=== PATIENT | male | born 1955 | race Caucasian/White ===

== ENCOUNTER 2019-04-24 08:49 | Outpatient (CLI) | payer BC ==
--- NOTE | 2019-04-24 09:16 | RAD ---
2 views lumbar spine: 04/24/2019 COMPARISON: None HISTORY: Left hip pain, low back pain, radiculopathy FINDINGS: There is a prominent degree of rotolevoscoliosis centered at the L2 level. The lateral exam ination demonstrates no significant anterolisthesis or retrolisthesis. There is prominent multilevel disc space narrowing throughout the lumbar spine. There is significant lateral osteophyte formation at multiple levels within the lumbar spine, most prominent at the L1-2 level, left greater than right, and at the L2-3 and L3-4 level on the right. No acute fracture or evidence of dislocation is apparent. IMPRESSION: Prominent multilevel lumbar spine degenerative change.
== END 2019-04-24 08:50 | disposition home or self-care (01) ==
LOC: SCSRAD 08:49
PROVIDERS: ATTEND Nurse Practitioner Family
DX: M54.5 Low back pain (principal); M47.816 Spondylosis without myelopathy or radiculopathy, lumbar region
CPT/HCPCS: 72100

== ENCOUNTER 2020-02-11 09:10 | Observation (INO) | payer BC ==
[~2020-02-11 09:10] MED LIST: Iopamidol-370 76% 500 ML 1 ML ONE
[2020-02-11] MEDS ORDERED: Dexamethasone 10 MG/ML VIAL ONE (09:36)
[2020-02-11 09:52] LABS: #Eosinphils 0.1 thou/uL (0.0-0.7); #Lymphocytes 1.1 thou/uL (1.20-3.40); #Monocytes 0.5 thou/uL (0.11-0.59); #Neutrophils 6.1 thou/uL (1.40-6.50); %Basophils 0.3 % (0.0-1.0); %Eosinophils 0.8 % (0.0-10.0); %Lymphocytes 13.9 % (21.0-51.0); %Monocytes 6.6 % (0.0-10.0); %Neutrophils 78.5 % (42.0-75.0); Mean Corpuscular HGB CONC 34.4 g/dL (32.0-36.0); Mean Corpuscular Volume 93.1 fL (78.0-98.0); Mean Platelet Volume 6.2 fL (7.4-10.4); Platelet Count 298 thou/uL (130-400); RBC Distribution Width 14.1 % (11.5-14.5); Red Blood Cell (RBC) Count 4.36 mill/uL (4.70-6.10); White Blood Cell (WBC) Count 7.7 thou/uL (4.8-10.8)
--- NOTE | 2020-02-11 10:05 | RAD ---
PORTABLE CHEST: HISTORY: COVID positive, cough and shortness of breath. FINDINGS: Heart size and mediastinum are within normal limits. Bilateral lung infiltrates are seen. Changes a re more pronounced in the right lung. IMPRESSION: Bilateral lung infiltrates consistent with COVID pneumonia. POS: STEPHANIE
[2020-02-11 10:18] LABS: ALT (SGPT) 48 U/L (8-55); AST (SGOT) 29 U/L (5-34); Albumin 3.2 g/dL (3.4-4.8); Alkaline Phosphatase 70 U/L (40-110); Anion Gap 18 mmol/L (10-20); BUN (Urea Nitrogen) 16 mg/dL (8.4-25.7); Bilirubin, Total 0.7 mg/dL (0.2-1.2); Calc. Creatinine Clearance 0 mL/min (70-130); Calcium 8.4 mg/dL (7.8-10.44); Carbon Dioxide 21 mmol/L (23-31); Chloride 106 mmol/L (98-107); Globulin 3.3 g/dL (2.4-3.5); Glucose 105 mg/dL (80-115); Potassium 3.9 mmol/L (3.5-5.1); Protein, Total 6.5 g/dL (5.8-8.1); Sodium 141 mmol/L (136-145)
[2020-02-11] MEDS ORDERED: Cefepime 2 GM VIAL ONE (10:55)
[2020-02-11] MEDS ORDERED: Azithromycin 500 MG VIAL ONE (10:55)
[2020-02-11 13:01] LABS: Lactic Acid 2.4 mmol/L (0.5-2.2)
[2020-02-11] MEDS ORDERED: Aspirin Chewable 81 MG TAB ONE (13:28)
[2020-02-11] MEDS ORDERED: Acetaminophen 325 MG TAB PO PRN (13:29)
[2020-02-11] MEDS ORDERED: Acetaminophen 650 MG Suppository PR PRN (13:29)
[2020-02-11] MEDS ORDERED: Enoxaparin Sodium 40 MG/0.4 ML SYRINGE SC SCH (13:30)
[2020-02-11] MEDS ORDERED: Benzonatate 100 MG CAP PO PRN (13:40)
--- NOTE | 2020-02-11 13:44 | PDOC.HHP ---
Hospitalist HPI - History of Present Illness History of Present Illness: ADMISSION DATE: 02/11/2020 TIME OF ASSESSMENT: 1300 PRIMARY CARE PHYSICIAN: Dr. Kitty Valentine CHIEF COMPLAINT: Shortness of breath HPI: This is a 64-year-old gentleman who presents to the emergency department with increasing shortness of breath for the days. Patient states he first started to feel unwell on , 02/01/2020 with chills a cough and then later that week and developed mild shortness of breath. This prompted him to be tested for Covid on 02/04/2020 and was found to be positive. Patient states his symptoms have persisted and his shortness of breath has gradually worsened since then. Complains of a cough and on occasion has coughing fits that causes difficulty catching his breath and during those episodes is able to cough up green sputum. Denies any hemoptysis. States his shortness of breath has continued to worsen and yesterday evening he used his [id number]'s supplemental home oxygen to help him rest better at night which did work. This morning he was at as well and prompted by his sister to come in for further evaluation. Does not require oxygen at baseline and does not have any history of asthma, COPD or other lung disease. Arriving to the emergency department the patient is feeling better and is currently without any complaints. ROS: He denies having any chest pain or palpitations. No lightheadedness or dizziness. Denies any nausea or vomiting. No abdominal pain or cramping and denies any changes with her stools. Denies any urinary symptoms. All other review of systems are negative ED COURSE: In the emergency department he had an EKG done which showed a normal sinus rhythm with a heart rate of 88. No ST changes or T wave abnormalities present. Labs showed a white count of 7.7, hemoglobin 14, hematocrit 40.6, platelets 298, neutrophils 75%. Sodium 141, potassium 3.9, BUN 16, creatinine 1.03, GFR 73, LFTs normal. Troponin 0 0.022. Lactic acid 2.4. Chest x-ray showed bilateral lung infiltrates consistent with Covid pneumonia. Patient was given 324 mg of aspirin. He was started on IV antibiotics with azithromycin and cefepime. Also given 6 mg of p.o. dexamethasone. He received 1 L of normal saline. PAST MEDICAL HISTORY: 1. Hypertension 2. Hyperlipidemia 3. Obesity 4. CAD PAST SURGICAL HISTORY: 1. History of coronary artery stents, placed by Dr. Simon 2. Neck surgery SOCIAL HISTORY: She denies any tobacco use alcohol consumption or drug use. He is fully independent at baseline. FAMILY HISTORY: Noncontributory ALLERGIES: Isosorbide CURRENT MEDICATIONS: 1. Atorvastatin 40 mg p.o. at bedtime 2. Gabapentin 600 mg p.o. at bedtime 3. Lisinopril 10 mg p.o. daily Surrogate decision maker is his Padma Curtis - Exam General Appearance: NAD, awake alert General - other findings: VS: Temp 97.9, HR 78, BP 112/71, RR 20, O2 sat 96% on room air. Eye: PERRL, anicteric sclera ENT: normocephalic atraumatic, no oropharyngeal lesions Neck: supple, no lymphadenopathy Heart: RRR, normal peripheral pulses Respiratory: CTAB, no wheezes, no rales, no ronchi Respiratory - other findings: deep inspiration triggers coughing Gastrointestinal: soft (obese), non-tender, non-distended, no guarding, no ri gidity Extremities: no cyanosis, no edema Skin: tenting Neurological: cranial nerve grossly intact, normal sensation to touch, no weakness, no focal deficits Musculoskeletal: normal tone, normal strength, no muscle wasting Psychiatric: normal affect, normal behavior, A&O x 3 Hospitalist Results - Labs Result Diagrams: 02/11/20 09:41 02/11/20 09:41 Lab results: WBC 7.7 thou/uL (4.8-10.8) 02/11/20 09:41 Hgb 14.0 g/dL (14.0-18.0) 02/11/20 09:41 Hct 40.6 % (42.0-52.0) L 02/11/20 09:41 MCV 93.1 fL (78.0-98.0) 02/11/20 09:41 Plt Count 298 thou/uL (130-400) 02/11/20 09:41 Neutrophils % 78.5 % (42.0-75.0) H 02/11/20 09:41 Sodium 141 mmol/L (136-145) 02/11/20 09:41 Potassium 3.9 mmol/L (3.5-5.1) 02/11/20 09:41 Chloride 106 mmol/L (98-107) 02/11/20 09:41 Carbon Dioxide 21 mmol/L (23-31) L 02/11/20 09:41 BUN 16 mg/dL (8.4-25.7) 02/11/20 09:41 Creatinine 1.03 mg/dL (0.7-1.3) 02/11/20 09:41 Glucose 105 mg/dL (80-115) 02/11/20 09:41 Lactic Acid 2.4 mmol/L (0.5-2.2) H 02/11/20 12:33 Calcium 8.4 mg/dL (7.8-10.44) 02/11/20 09:41 Total Bilirubin 0.7 mg/dL (0.2-1.2) 02/11/20 09:41 AST 29 U/L (5-34) 02/11/20 09:41 ALT 48 U/L (8-55) 02/11/20 09:41 Alkaline Phosphatase 70 U/L (40-110) 02/11/20 09:41 Troponin I 0.022 ng/mL (< 0.028) 02/11/20 09:41 Serum Total Protein 6.5 g/dL (5.8-8.1) 02/11/20 09:41 Albumin 3.2 g/dL (3.4-4.8) L 02/11/20 09:41 - Radiology Interpretation Chest x-ray Status: report reviewed by md Hospitalist H&P A/P - Problem (1) Pneumonia due to COVID-19 virus Code(s): U07.1 - COVID-19; J12.89 - OTHER VIRAL PNEUMONIA Status: Acute (2) Shortness of breath Code(s): R06.02 - SHORTNESS OF BREATH Status: Acute (3) Essential hypertension Code(s): I10 - ESSENTIAL (PRIMARY) HYPERTENSION Status: Acute (4) Hyperlipidemia Code(s): E78.5 - HYPERLIPIDEMIA, UNSPECIFIED Status: Acute (5) V-tach Code(s): I47.2 - VENTRICULAR TACHYCARDIA Status: Acute (6) CAD (coronary artery disease) Code(s): I25.10 - ATHSCL HEART DISEASE OF [place] CORONARY ARTERY W/O ANG PCTRS Status: Chronic - Plan Plan: Shortness of breath secondary to COVID pneumonia: Has been symptomatic >1 week. Monitor O2 sats Obtain walking sats Continue IV antibiotics and decadron 6 mg IV daily Albuterol inhalers and supplemental O2 by NC Check LDH, Lactic acid, Ferritin, CRP and D-Dimer If d-dimer elevated obtain CTA to rule out PE If negative, obtain nonconstrast CT chest to better assess lungs Unable to have Echo due to covid status. Isolation precautions Lactic acidosis: Continue IV fluids and repeat Runs of non-sustained Vtach in ED Cardiac monitoring Continue to trend troponins Check electrolytes Cardiology consult placed per discussion with Dr. Sanchez (he sees Dr. Simon who is on) Essential hypertension: Patient states his BP runs in 110s to 120s at home. Currently low 100s. Hold antihypertensives for now Resume if BP starts to rise Hyperlipidemia Resume statin CAD As above, resume statin. Cardiology meds to ne verirfied, restart as appropriate GI Prophylaxis with Famotidine 20 mg IV BID DVT Prophylaxis with Lovenox 40 mg SC daily CODE STATUS FULL ADDENDUM: Case discussed with Dr. Sanchez who agrees with plan as above. Has advised to give Plasma. No benefit to Remdesivir as patient is >1 week from start of symptoms. Monitor strips reviewed by Dr. Simon and patient felt to have artifact rather than vtach.
[2020-02-11] MEDS ORDERED: Dexamethasone 4 mg/ml Vial SLOW IVP SCH (13:45)
[2020-02-11] MEDS ORDERED: Albuterol 200 PUFF (6.7GM INHALER) INH PRN (14:11)
[2020-02-11] MEDS ORDERED: Magnesium 2 GM/50 ML BAG (IN WATER) ONE (14:28)
[2020-02-11 15:00] LABS: Troponin I 0.021 ng/mL (< 0.028)
[2020-02-11] MEDS: Sodium Chloride 0.9% 1,000 ML IV SCH (15:57)
--- NOTE | 2020-02-11 17:05 | CT ---
CT ANGIOGRAM THORAX WITH IV CONTRAST AND 3-D RECONSTRUCTIONS CLINICAL INDICATION: Increasing shortness of breath for one week. Elevated d-dimer. Worsening cough. Covid positive. COMPARISON: None FINDINGS: Pulmonary arteries: No filling defects are seen in the pulmonary arteries to suggest a pulmonary embo shikha. Aorta: The aorta is normal in caliber without evidence of an aortic dissection. Lungs: There are scattered groundglass opacities seen throughout the lungs bilaterally greater in the upper lobes most compatible with Covid pneumonia. No pleural effusion is present. This exam is obtained in expiratory phase of imaging. Large airways otherwise appear patent. Mediastinum: Vascular calcifications are seen in the coronary arteries. No enlarged lymph nodes are s een by CT size criteria. Thyroid gland: Grossly within normal limits. Osseous structures: Degenerative changes are seen in the spine. Chest wall: Ventriculoperitoneal shunt catheter is seen in the midline anterior chest entering the ep igastric region anteriorly. There is evidence of a fat-containing hernia at entry site of the ventriculoperitoneal shunt catheter into the abdomen. Upper abdomen: Within normal limits for phase of imaging. IMPRESSION: 1. Covid pneumonia. 2. No CT evidence of a pulmonary embolus. 3. Coronary artery calcifications.
[2020-02-11] MEDS: Famotidine/PF 20 mg/2ml Vial SLOW IVP SCH (21:06)
[2020-02-11] MEDS: Cefepime 2 GM in Sodium Chloride 0.9% 100 ML IVPB SCH (22:12)
[2020-02-12] MEDS: Sodium Chloride 0.9% 1,000 ML IV SCH (03:21)
[2020-02-12 04:57] LABS: #Eosinphils 0.1 thou/uL (0.0-0.7); #Lymphocytes 0.9 thou/uL (1.20-3.40); #Monocytes 0.7 thou/uL (0.11-0.59); #Neutrophils 6.4 thou/uL (1.40-6.50); %Basophils 0.3 % (0.0-1.0); %Lymphocytes 11.3 % (21.0-51.0); %Monocytes 8.7 % (0.0-10.0); %Neutrophils 78.7 % (42.0-75.0); Hemoglobin 12.1 g/dL (14.0-18.0); Mean Corpuscular HGB CONC 32.7 g/dL (32.0-36.0); Mean Corpuscular Hemoglobin 30.6 pg (27.0-31.0); Mean Corpuscular Volume 93.6 fL (78.0-98.0); Platelet Count 313 thou/uL (130-400); RBC Distribution Width 14.1 % (11.5-14.5); Red Blood Cell (RBC) Count 3.95 mill/uL (4.70-6.10); White Blood Cell (WBC) Count 8.1 thou/uL (4.8-10.8)
[2020-02-12 05:17] LABS: Lactic Acid 1.1 mmol/L (0.5-2.2)
[2020-02-12 05:21] LABS: ALT (SGPT) 36 U/L (8-55); AST (SGOT) 13 U/L (5-34); Alkaline Phosphatase 61 U/L (40-110); Anion Gap 11 mmol/L (10-20); BUN (Urea Nitrogen) 22 mg/dL (8.4-25.7); Bilirubin, Total 0.6 mg/dL (0.2-1.2); Calc. Creatinine Clearance 128 mL/min (70-130); Calcium 7.9 mg/dL (7.8-10.44); Carbon Dioxide 24 mmol/L (23-31); Chloride 108 mmol/L (98-107); Globulin 2.5 g/dL (2.4-3.5); Glucose 93 mg/dL (80-115); Potassium 4.1 mmol/L (3.5-5.1); Protein, Total 5.5 g/dL (5.8-8.1); Sodium 139 mmol/L (136-145)
[2020-02-12] MEDS: Famotidine/PF 20 mg/2ml Vial SLOW IVP SCH (07:47)
[2020-02-12] MEDS ORDERED: Ascorbic Acid 500 mg Chewable Tablet PO SCH (09:00)
[2020-02-12] MEDS ORDERED: Enoxaparin Sodium 40 MG/0.4 ML SYRINGE SC SCH (09:00)
[2020-02-12] MEDS ORDERED: Dexamethasone 4 mg/ml Vial SLOW IVP SCH (09:00)
[2020-02-12] MEDS ORDERED: Zinc Sulfate 220 MG CAP PO SCH (09:00)
--- NOTE | 2020-02-12 10:43 | PDOC.DS.DS ---
Provider - Provider Date of Admission: 02/11/20 12:40 Date of Discharge: 02/12/20 Admitting Provider: Debra Sanchez MD Primary Care Physician: Kitty Valentine MD Course - Hospital Course Hospital Course: Discharge diagnosis: 1. COVID-19 pneumonia 2. Lactic acidosis Hospital course: Patient is a pleasant 64-year-old gentleman who was admitted to the hospital on observation status on February 11, 2020 for COVID-19 pneumonia and suspected v entricular tachycardia and electrocardiogram. The rhythm strip was reviewed by cardiology service and they felt that it was an artifact. Patient also had mild lactic acidosis at the time of admission, which resolved. He did not qualify for remdesivir or steroids. He was not hypoxic. He was offered convalescent plasma, which he initially refused but at the time of this dictation he is willing to receive. He will be discharged home after administration of convalescent plasma. He also received intravenous antibiotics while in the hospital to cover for the possibility of secondary bacterial infection and is being discharged home on oral antibiotics. Is also been advised to take zinc and vitamin C. Many thanks for allowing me to participate in your patient's care. Please feel free to contact me with any questions or concerns. Discharge destination: Home Resuscitation Status: 02/11/20 13:29 Resuscitation Status Routine Co-Sign Provider: Resuscitation Status: FULL: Full Resuscitation - Labs Lab Results: 02/12/20 04:46 02/12/20 04:46 Abnormal Lab Results - Last 48 hrs 02/11/20 09:40: Lactate Dehydrogenase 511 H 02/11/20 09:40: D-Dimer 0.77 H 02/11/20 09:40: C-Reactive Protein 1.08 H 02/11/20 09:40: Ferritin 470.66 H 02/11/20 09:41: Lactic Acid 2.4 H 02/11/20 09:41: Carbon Dioxide 21 L, Albumin 3.2 L, Albumin/Globulin Ratio 1.0 L 02/11/20 09:41: RBC 4.36 L, Hct 40.6 L, MCH 32.0 H, MPV 6.2 L, Neutrophils % 78.5 H, Lymphocytes % 13.9 L, Lymphocytes # 1.1 L 02/11/20 12:33: Lactic Acid 2.4 H 02/12/20 04:46: Chloride 108 H, Serum Total Protein 5.5 L, Albumin 3.0 L 02/12/20 04:46: RBC 3.95 L, Hgb 12.1 L, Hct 36.9 L, MPV 6.0 L, Neutrophils % 78.7 H, Lymphocytes % 11.3 L, Lymphocytes # 0.9 L, Monocytes # 0.7 H - Physical Exam Vitals: Vital Signs (12 hours) Temp Pulse Resp BP Pulse Ox 02/12/20 08:08 98.7 F 90 20 129/58 L 94 L 02/12/20 05:01 98.3 F 58 L 17 146/74 H 94 L 02/11/20 23:55 97.6 F 64 17 135/73 94 L Weight Weight 260 lb Physical Exam: The patient was seen and examined on the day of discharge. Patient denies chest pain or shortness of breath. Vital signs are stable. S1 and S2 are heard. Lungs are clear to auscultation bilaterally. Plan - Discharge Medications Prescriptions: Cefdinir [Omnicef] 300 mg PO BID #18 cap Ascorbic Acid [Vitamin C] 1,000 mg PO DAILY #30 tablet Zinc Sulfate [Zinc-220] 220 mg PO DAILY #10 capsule Home Medications: Medication Instructions Recorded Confirmed Type Gabapentin 1 tab PO BID 04/21/16 02/11/20 History Lisinopril 1 tab PO HS 04/21/16 02/11/20 History Albuterol Sulfate [Albuterol 8.5 gm IH Q4H PRN 02/11/20 02/11/20 History Sulfate Hfa] Aspirin [Ecotrin Low Strength] 81 mg PO DAILY 02/11/20 02/11/20 History Atorvastatin Calcium [Lipitor] 20 mg PO DAILY 02/11/20 02/11/20 History Furosemide [Lasix] 20 mg PO DAILY PRN 02/11/20 02/11/20 History Ascorbic Acid [Vitamin C] 1,000 mg PO DAILY #30 tablet 02/12/20 Rx Cefdinir [Omnicef] 300 mg PO BID #18 cap 02/12/20 Rx Zinc Sulfate [Zinc-220] 220 mg PO DAILY #10 capsule 02/12/20 Rx Allergies: isosorbide Allergy (Intermediate, Verified 02/11/20 15:31) Rash per pt - Discharge Instructions Discharge Instructions:: Monitor pulse oximeter readings and seek medical attention for oxygen saturation less than 90%. Activity:: Activity as Tolerated Nourishment:: Heart Healthy Diet - Follow up Plan Referrals: Kitty Valentine MD [Primary Care Provider] - 3 Days Disposition: HOME Quality - Care Measures CORE MEASURES:: N/A
[2020-02-12] MEDS ORDERED: Azithromycin 500 MG in Sodium Chloride 0.9% 250 ML 250 ML IVPB SCH (11:00)
[2020-02-12] MEDS: Cefepime 2 GM in Sodium Chloride 0.9% 100 ML IVPB SCH (12:40)
[2020-02-12 17:16] VITALS: BP 136/77; TEMP 98.6
== END 2020-02-12 17:45 | disposition home or self-care (01) ==
LOC: ERS 09:10 → ERHOLD 12:40 → 2SW 14:58
PROVIDERS: ADMIT Internal Medicine; ATTEND Internal Medicine
DX: U07.1 COVID-19 (principal); J12.89 Other viral pneumonia; E87.2 Acidosis; I10 Essential (primary) hypertension; E78.5 Hyperlipidemia, unspecified; I47.2 Ventricular tachycardia; I25.10 Atherosclerotic heart disease of native coronary artery without angina pectoris; E66.9 Obesity, unspecified; Z79.82 Long term (current) use of aspirin; Z79.899 Other long term (current) drug therapy; Z88.8 Allergy status to other drugs, medicaments and biological substances; Z95.5 Presence of coronary angioplasty implant and graft
CPT/HCPCS: 36415; 36430; 71045; 71275; 80053; 82728; 83605; 83615; 83735; 84484; 85025; 85379; 86140; 86850; 86900; 86901; 93005; 94760; 96365; 96367; 96372; 96375; 96376; G0378; J0456; J0692; J1100; J1650; J3475; J3490; J7050; P9017; Q9967; S0028

== ENCOUNTER 2020-04-25 08:34 | Outpatient (CLI) | payer BC, MEDICARE ==
[2020-04-25 09:39] LABS: Hemoglobin 13.9 g/dL (13.5-17.5); Mean Corpuscular HGB CONC 31.5 g/dL (32.0-36.0); Mean Corpuscular Hemoglobin 29.8 pg (27.0-33.0); Mean Corpuscular Volume 94.6 fl (81.2-95.1); Mean Platelet Volume 9.2 fl (7.4-10.4); Platelet Count 191 10x3/uL (150-450); Red Blood Cell (RBC) Count 4.66 10x6/uL (4.32-5.72); White Blood Cell (WBC) Count 7.1 10x3/uL (3.5-10.5)
[2020-04-25 10:01] LABS: PTT 24.8 sec (22.0-33.0); Prothrombin Time 10.3 sec (9.5-12.1)
[2020-04-25 10:20] LABS: Anion Gap 14 mmol/L (10-20); BUN (Urea Nitrogen) 18 mg/dL (8.4-25.7); Calc. Creatinine Clearance 0 mL/min (70-130); Calcium 8.9 mg/dL (7.8-10.44); Carbon Dioxide 27 mmol/L (23-31); Chloride 106 mmol/L (98-107); Glucose 105 mg/dL (80-115); Potassium 4.7 mmol/L (3.5-5.1); Sodium 142 mmol/L (136-145)
== END 2020-04-25 08:35 | disposition home or self-care (01) ==
LOC: LABBT 08:34
PROVIDERS: ATTEND Surgery
DX: Z01.818 Encounter for other preprocedural examination (principal); M51.16 Intervertebral disc disorders with radiculopathy, lumbar region; M48.061 Spinal stenosis, lumbar region without neurogenic claudication; Z20.822 Contact with and (suspected) exposure to COVID-19
CPT/HCPCS: 80048; 85027; 85610; 85730; 93005; 93010

== ENCOUNTER 2020-04-30 05:45 | Observation (INO) | payer BC, MEDICARE ==
[2020-04-30] MEDS ORDERED: Thrombin 5000 UNITS/5 ML VIAL ONE (06:24)
[2020-04-30] MEDS ORDERED: Fentanyl 250 MCG/5 ML VIAL ONE (06:45)
[2020-04-30] MEDS ORDERED: Midazolam HCl 2 mg/2 ml Vial ONE (07:16)
[2020-04-30] MEDS ORDERED: Phenylephrine 10 MG/ML VIAL ONE (09:00)
[2020-04-30] MEDS ORDERED: PHENYLEPHRINE-NS 100 MCG/ML 10 ML SYRINGE ONE (09:38)
[2020-04-30] MEDS ORDERED: Metoclopramide HCl 10 MG/2 ML VIAL ONE (09:38)
[2020-04-30] MEDS ORDERED: Ondansetron PF 4 MG/2 ML Vial ONE (09:38)
[2020-04-30] MEDS ORDERED: PROPOFOL 200 MG/20 ML VIAL ONE (09:38)
[2020-04-30] MEDS ORDERED: ePHEDrine 50 MG/ML VIAL ONE (09:38)
[2020-04-30] MEDS ORDERED: Dexamethasone 20 MG/5 ML VIAL ONE (09:38)
[2020-04-30] MEDS ORDERED: Lidocaine 1% PF 5 ML VIAL ONE (09:38)
[2020-04-30] MEDS ORDERED: Glycopyrrolate 0.2 MG/ML 5 ML SYRINGE ONE (09:38)
[2020-04-30] MEDS ORDERED: Rocuronium Bromide 10 MG/ML (10ML VIAL) ONE (09:38)
[2020-04-30] MEDS ORDERED: Morphine Sulfate 2 MG/ML SYRINGE SLOW IVP PRN (10:12)
[2020-04-30] MEDS ORDERED: Promethazine HCl 25 MG/ML VIAL IM PRN (10:12)
[2020-04-30] MEDS ORDERED: Ondansetron HCl/PF 4 MG/2 ML Vial IVP PRN (10:12)
[2020-04-30] MEDS ORDERED: HYDROmorphone 2 MG/ML VIAL SLOW IVP PRN (10:12)
[2020-04-30] MEDS ORDERED: Promethazine HCl 25 MG/ML VIAL SLOW IVP PRN (10:12)
[2020-04-30] MEDS ORDERED: PACU-Morphine 4MG/ML VIAL SLOW IVP PRN (10:12)
[2020-04-30] MEDS ORDERED: HYDROmorphone 2 MG/ML VIAL ONE (10:49)
[2020-04-30] MEDS ORDERED: Acetaminophen 325 MG TAB PO PRN (11:23)
[2020-04-30] MEDS ORDERED: traMADol HCl 50 MG TAB PO PRN (11:23)
[2020-04-30] MEDS ORDERED: Bisacodyl 10 MG SUPP PR PRN (11:23)
[2020-04-30] MEDS ORDERED: Morphine 2 MG/ML VIAL SLOW IVP PRN (11:23)
[2020-04-30] MEDS ORDERED: Mag-Al 1200 mg/1200 mg/30 ML UDCUP PO PRN (11:23)
[2020-04-30] MEDS ORDERED: Acetaminophen/Codeine 30-300mg Tablet PO PRN (11:23)
[2020-04-30] MEDS ORDERED: Milk Of Magnesia 30 ML UDCUP PO PRN (11:23)
[2020-04-30] MEDS ORDERED: Furosemide 20 MG TAB PO PRN (11:26)
[2020-04-30] MEDS ORDERED: hydrALAZINE 20 MG/ML VIAL SLOW IVP PRN (11:26)
[2020-04-30] MEDS ORDERED: Fentanyl 100 MCG/2 ML VIAL ONE ×3 (11:45→12:56)
[2020-04-30] MEDS: Sodium Chloride 0.9% 1,000 ML IV SCH (15:22)
[2020-04-30] MEDS: CEFAZOLIN 2 GM in Premix Bag 1 BAG IVPB SCH ×2 (16:30→23:33)
[2020-04-30] MEDS: HYDROcodone/Acetaminophen 7.5/325 mg Tablet PO PRN ×2 (20:01→23:32)
[2020-04-30] MEDS: Lisinopril 5 MG TAB PO SCH (20:02)
[2020-04-30] MEDS: Gabapentin 300 MG CAP PO SCH (20:02)
[2020-04-30] MEDS: tiZANidine HCl 4 MG TAB PO PRN (20:03)
[2020-05-01] MEDS: Sodium Chloride 0.9% 1,000 ML IV SCH ×2 (03:13→14:58)
[2020-05-01] MEDS: HYDROcodone/Acetaminophen 7.5/325 mg Tablet PO PRN ×3 (04:11→14:58)
[2020-05-01] MEDS: tiZANidine HCl 4 MG TAB PO PRN ×2 (04:11→16:05)
[2020-05-01 05:57] LABS: #Lymphocytes 1.2 thou/uL (1.20-3.40); #Monocytes 1.4 thou/uL (0.11-0.59); #Neutrophils 10.2 thou/uL (1.40-6.50); %Eosinophils 0.3 % (0.0-10.0); %Neutrophils 79.7 % (42.0-75.0); Hemoglobin 11.1 g/dL (14.0-18.0); Mean Corpuscular HGB CONC 32.7 g/dL (32.0-36.0); Mean Corpuscular Hemoglobin 30.9 pg (27.0-31.0); Mean Corpuscular Volume 94.3 fL (78.0-98.0); Mean Platelet Volume 6.8 fL (7.4-10.4); Platelet Count 183 thou/uL (130-400); RBC Distribution Width 14.8 % (11.5-14.5); Red Blood Cell (RBC) Count 3.61 mill/uL (4.70-6.10); White Blood Cell (WBC) Count 12.8 thou/uL (4.8-10.8)
[2020-05-01 06:18] LABS: Anion Gap 14 mmol/L (10-20); BUN (Urea Nitrogen) 15 mg/dL (8.4-25.7); Calc. Creatinine Clearance 132 mL/min (70-130); Calcium 7.9 mg/dL (7.8-10.44); Carbon Dioxide 23 mmol/L (23-31); Chloride 106 mmol/L (98-107); Glucose 122 mg/dL (80-115); Potassium 4.2 mmol/L (3.5-5.1); Sodium 139 mmol/L (136-145)
[2020-05-01] MEDS: Gabapentin 300 MG CAP PO SCH ×2 (08:15→20:44)
[2020-05-01] MEDS: Atorvastatin Calcium 20 MG TAB PO SCH (20:44)
[2020-05-01] MEDS: Lisinopril 5 MG TAB PO SCH (20:47)
[2020-05-02] MEDS: tiZANidine HCl 4 MG TAB PO PRN ×3 (00:08→19:04)
[2020-05-02] MEDS: HYDROcodone/Acetaminophen 7.5/325 mg Tablet PO PRN ×3 (00:09→20:44)
[2020-05-02] MEDS: Sodium Chloride 0.9% 1,000 ML IV SCH ×2 (04:38→17:02)
[2020-05-02] MEDS: Gabapentin 300 MG CAP PO SCH ×2 (07:47→20:42)
[2020-05-02] MEDS: Atorvastatin Calcium 20 MG TAB PO SCH (20:41)
[2020-05-02] MEDS: Lisinopril 5 MG TAB PO SCH (20:41)
[2020-05-03] MEDS: tiZANidine HCl 4 MG TAB PO PRN (05:16)
[2020-05-03] MEDS: Sodium Chloride 0.9% 1,000 ML IV SCH (06:08)
[2020-05-03] MEDS ORDERED: Sodium Chloride 0.9% 1,000 ML IV SCH (09:00)
[2020-05-03] MEDS: Gabapentin 300 MG CAP PO SCH (10:14)
[2020-05-03] MEDS: HYDROcodone/Acetaminophen 7.5/325 mg Tablet PO PRN ×2 (13:19→17:30)
[2020-05-03 16:51] VITALS: BP 120/69; TEMP 98.2
[2020-05-03 18:02] VITALS: BMI 38.4
== END 2020-05-03 17:41 | disposition home or self-care (01) ==
LOC: SDC 05:45 → T4-A 11:23 → SDC 05-03 09:39
PROVIDERS: ADMIT Surgery; ATTEND Surgery
PROC: 01NB0ZZ Release Lumbar Nerve, Open Approach (ICD-10-PCS; principal; 2020-04-30)
DX: M48.061 Spinal stenosis, lumbar region without neurogenic claudication (principal); M54.16 Radiculopathy, lumbar region; Z79.82 Long term (current) use of aspirin; Z79.899 Other long term (current) drug therapy; Z88.8 Allergy status to other drugs, medicaments and biological substances
CPT/HCPCS: 36415; 76000; 80048; 85025; G0378; J0690; J1100; J1170; J2250; J2270; J2370; J2405; J2704; J2765; J3010; J3370; J3490

== ENCOUNTER 2020-10-16 08:23 | Outpatient (CLI) | payer MEDICARE | END 2020-10-16 08:24 | disposition home or self-care (01) | LOC: BICRAD 08:23 | PROVIDERS: ATTEND Physician Assistant | DX: M54.5 Low back pain (principal); M47.816 Spondylosis without myelopathy or radiculopathy, lumbar region; Z98.890 Other specified postprocedural states | CPT/HCPCS: 72100 ==

== ENCOUNTER 2021-02-21 06:59 | Inpatient (IN) | payer MEDICARE ==
[2021-02-21 08:18] LABS: #Eosinphils 0.2 thou/uL (0.0-0.7); #Lymphocytes 1.7 thou/uL (1.20-3.40); #Monocytes 0.8 thou/uL (0.11-0.59); #Neutrophils 3.8 thou/uL (1.40-6.50); %Basophils 0.5 % (0.0-1.0); %Eosinophils 3.1 % (0.0-10.0); %Lymphocytes 25.9 % (21.0-51.0); %Monocytes 11.5 % (0.0-10.0); Hemoglobin 11.5 g/dL (14.0-18.0); Mean Corpuscular Hemoglobin 31.2 pg (27.0-31.0); Platelet Count 233 thou/uL (130-400); RBC Distribution Width 16.4 % (11.5-14.5); Red Blood Cell (RBC) Count 3.69 mill/uL (4.70-6.10); White Blood Cell (WBC) Count 6.5 thou/uL (4.8-10.8)
[2021-02-21] MEDS ORDERED: Lorazepam 2 MG/ML VIAL ONE (08:34)
[2021-02-21] MEDS ORDERED: Aspirin Chewable 81 MG TAB ONE (08:35)
[2021-02-21] MEDS ORDERED: Aspirin 325 MG TAB ONE (08:35)
[2021-02-21] MEDS ORDERED: Furosemide 40 MG/4 ML VIAL ONE (08:35)
[2021-02-21] MEDS ORDERED: Nitroglycerin 2% Ointment 1 INCH/1 GM Packet ONE (08:35)
[2021-02-21 08:36] LABS: ALT (SGPT) 40 U/L (8-55); AST (SGOT) 22 U/L (5-34); Alkaline Phosphatase 90 U/L (40-110); Anion Gap 13 mmol/L (10-20); BUN (Urea Nitrogen) 10 mg/dL (8.4-25.7); Calc. Creatinine Clearance 0 mL/min (70-130); Calcium 8.8 mg/dL (7.8-10.44); Carbon Dioxide 24 mmol/L (23-31); Chloride 104 mmol/L (98-107); Globulin 2.5 g/dL (2.4-3.5); Glucose 105 mg/dL (80-115); Lipase 36 U/L (8-78); Magnesium 1.6 mg/dL (1.6-2.6); Potassium 3.8 mmol/L (3.5-5.1); Protein, Total 5.5 g/dL (5.8-8.1); Sodium 137 mmol/L (136-145)
[2021-02-21] MEDS ORDERED: Magnesium 2 GM/50 ML BAG (IN WATER) ONE (10:56)
[2021-02-21] MEDS ORDERED: Iopamidol-370 76% 500 ML 1 ML ONE (11:11)
[2021-02-21 11:31] LABS: Troponin I 0.013 ng/mL (< 0.028)
[2021-02-21 14:02] LABS: SARS-CoV-2 NAA Rapid Test Not Detected (NotDetected)
[2021-02-21 15:09] LABS: Troponin I 0.018 ng/mL (< 0.028)
[2021-02-21] MEDS ORDERED: Calcium Carbonate 500 MG ChewTAB PO PRN (17:07)
[2021-02-21] MEDS ORDERED: Electrolyte Replacement Protocol 1 EACH FS SCH (17:15)
[2021-02-21] MEDS ORDERED: Ondansetron PF 4 MG/2 ML Vial IVP PRN (18:12)
[2021-02-21] MEDS ORDERED: Potassium Chloride 20 MEQ TAB PO SCH (18:30)
[2021-02-21] MEDS ORDERED: Magnesium 2 GM/50 ML 2 GM in Premix Bag 1 BAG IVPB SCH (20:00)
[2021-02-21] MEDS: Furosemide 100 MG in Sodium Chloride 0.9% 90 ML IVPB SCH (20:26)
[2021-02-21] MEDS: Doxycycline 100 MG CAP PO SCH (20:37)
[2021-02-21] MEDS: Senokot S 8.6-50 MG TAB PO SCH (20:39)
[2021-02-21] MEDS: Heparin 5,000 UNITS/ML VIAL SC SCH (20:58)
[2021-02-21] MEDS ORDERED: Lorazepam 2 MG/ML VIAL SLOW IVP SCH (21:00)
[2021-02-21] MEDS: Albumin 25% 25 GM/100 ML BOT IVPB SCH (21:03)
[2021-02-21] MEDS: cefTRIAXone\\ROCEPHIN 2 GM in Sodium Chloride 0.9% 100 ML IVPB SCH (21:56)
[2021-02-22] MEDS: Albumin 25% 25 GM/100 ML BOT IVPB SCH ×4 (01:09→18:13)
[2021-02-22 04:48] LABS: #Basophils 0.1 thou/uL (0.0-0.2); #Eosinphils 0.2 thou/uL (0.0-0.7); #Lymphocytes 0.5 thou/uL (1.20-3.40); #Monocytes 0.7 thou/uL (0.11-0.59); #Neutrophils 4.5 thou/uL (1.40-6.50); %Basophils 1.8 % (0.0-1.0); %Eosinophils 3.1 % (0.0-10.0); %Monocytes 11.2 % (0.0-10.0); Hemoglobin 10.6 g/dL (14.0-18.0); Mean Corpuscular HGB CONC 33.7 g/dL (32.0-36.0); Mean Corpuscular Hemoglobin 29.8 pg (27.0-31.0); Mean Corpuscular Volume 88.7 fL (78.0-98.0); Mean Platelet Volume 6.2 fL (7.4-10.4); Platelet Count 232 thou/uL (130-400); RBC Distribution Width 16.3 % (11.5-14.5); Red Blood Cell (RBC) Count 3.54 mill/uL (4.70-6.10)
[2021-02-22 05:02] LABS: ALT (SGPT) 30 U/L (8-55); AST (SGOT) 19 U/L (5-34); Albumin 3.3 g/dL (3.4-4.8); Alkaline Phosphatase 74 U/L (40-110); Anion Gap 14 mmol/L (10-20); BUN (Urea Nitrogen) 8 mg/dL (8.4-25.7); Bilirubin, Total 1.2 mg/dL (0.2-1.2); Calc. Creatinine Clearance 97 mL/min (70-130); Calcium 8.3 mg/dL (7.8-10.44); Carbon Dioxide 24 mmol/L (23-31); Chloride 102 mmol/L (98-107); Globulin 2.2 g/dL (2.4-3.5); Glucose 103 mg/dL (80-115); Protein, Total 5.5 g/dL (5.8-8.1); Sodium 136 mmol/L (136-145)
[2021-02-22 05:07] LABS: Phosphorus 1.7 mg/dL (2.3-4.7)
[2021-02-22] MEDS ORDERED: Potassium Phosphate 15 MMOL in Sodium Chloride 0.9% 100 ML IVPB SCH (06:00)
[2021-02-22] MEDS ORDERED: PHOS-NAK 1 PKT PACK PO SCH (06:00)
[2021-02-22] MEDS ORDERED: Magnesium 2 GM/50 ML 2 GM in Premix Bag 1 BAG IVPB SCH (06:00)
[2021-02-22 07:56] VITALS: BMI 41.2
[2021-02-22] MEDS ORDERED: Potassium Chloride 20 MEQ TAB PO SCH ×2 (08:00→11:00)
[2021-02-22] MEDS ORDERED: Gabapentin 300 MG CAP PO SCH (09:00)
[2021-02-22 09:18] LABS: Actual Bicarbonate (HCO3a) 23.9 mEq/L (22-28); Base Excess (BEa) 0.6 mEq/L (-2.0 to +3.0); CO2 Tension 33.5 mmHg (35.0-45.0); Calcium, Ionized (arterial) 1.07 mmol/L (1.12-1.30); Carboxyhemoglobin (COHb) 0.5 gm% (0.0-3.0); Hemoglobin (Hb) 10.6 g/dL (14.0-18.0); O2 Tension (PaO2), arterial 67.7 mmHg (> 80.0); Potassium - ABG Lab 3.64 mmol/L (3.70-5.30); pH, Arterial 7.47 (7.35-7.45)
[2021-02-22 09:19] LABS: ALV-art Gradient 40.155 mmHg (0-20); Puncture Site RRA
[2021-02-22] MEDS: Aspirin 81 mg Enteric Coated Tablet PO SCH (09:51)
[2021-02-22] MEDS: Senokot S 8.6-50 MG TAB PO SCH ×2 (09:51→20:22)
[2021-02-22] MEDS: Acetaminophen 325 MG TAB PO PRN (09:51)
[2021-02-22] MEDS: Doxycycline 100 MG CAP PO SCH ×2 (09:51→20:22)
[2021-02-22] MEDS: Heparin 5,000 UNITS/ML VIAL SC SCH ×3 (09:52→20:46)
[2021-02-22] MEDS: Saccharomyces boulardii 250 MG CAP PO SCH (09:52)
[2021-02-22] MEDS: Atorvastatin Calcium 20 MG TAB PO SCH (20:21)
[2021-02-22] MEDS: cefTRIAXone\\ROCEPHIN 2 GM in Sodium Chloride 0.9% 100 ML IVPB SCH (20:23)
[2021-02-23] MEDS: Furosemide 100 MG in Sodium Chloride 0.9% 90 ML IVPB SCH (00:36)
[2021-02-23 05:07] LABS: #Eosinphils 0.2 thou/uL (0.0-0.7); #Monocytes 0.5 thou/uL (0.11-0.59); #Neutrophils 2.7 thou/uL (1.40-6.50); %Basophils 0.3 % (0.0-1.0); %Eosinophils 5.5 % (0.0-10.0); %Lymphocytes 21.9 % (21.0-51.0); %Neutrophils 61.3 % (42.0-75.0); Hemoglobin 9.7 g/dL (14.0-18.0); Mean Corpuscular HGB CONC 34.5 g/dL (32.0-36.0); Mean Corpuscular Hemoglobin 30.9 pg (27.0-31.0); Mean Corpuscular Volume 89.6 fL (78.0-98.0); Mean Platelet Volume 6.1 fL (7.4-10.4); Platelet Count 220 thou/uL (130-400); RBC Distribution Width 16.1 % (11.5-14.5); Red Blood Cell (RBC) Count 3.14 mill/uL (4.70-6.10); White Blood Cell (WBC) Count 4.3 thou/uL (4.8-10.8)
[2021-02-23 06:01] LABS: ALT (SGPT) 21 U/L (8-55); AST (SGOT) 15 U/L (5-34); Albumin 3.3 g/dL (3.4-4.8); Alkaline Phosphatase 61 U/L (40-110); Anion Gap 12 mmol/L (10-20); BUN (Urea Nitrogen) 6 mg/dL (8.4-25.7); Bilirubin, Total 1.2 mg/dL (0.2-1.2); Calc. Creatinine Clearance 111 mL/min (70-130); Calcium 8.4 mg/dL (7.8-10.44); Carbon Dioxide 26 mmol/L (23-31); Chloride 102 mmol/L (98-107); Globulin 1.9 g/dL (2.4-3.5); Glucose 103 mg/dL (80-115); Magnesium 2.1 mg/dL (1.6-2.6); Phosphorus 2.5 mg/dL (2.3-4.7); Potassium 3.5 mmol/L (3.5-5.1); Protein, Total 5.2 g/dL (5.8-8.1); Sodium 136 mmol/L (136-145)
[2021-02-23] MEDS ORDERED: Potassium Chloride 20 MEQ TAB PO SCH (06:45)
[2021-02-23] MEDS: Gabapentin 100 MG CAP PO SCH (09:54)
[2021-02-23] MEDS: Doxycycline 100 MG CAP PO SCH ×2 (09:54→20:34)
[2021-02-23] MEDS: Aspirin 81 mg Enteric Coated Tablet PO SCH (09:55)
[2021-02-23] MEDS: Saccharomyces boulardii 250 MG CAP PO SCH (09:55)
[2021-02-23] MEDS: Senokot S 8.6-50 MG TAB PO SCH ×2 (09:55→20:33)
[2021-02-23] MEDS: Heparin 5,000 UNITS/ML VIAL SC SCH ×3 (09:57→20:33)
[2021-02-23] MEDS: Budesonide 0.5 MG/2 ML NEB NEB SCH ×3 (10:23→19:25)
[2021-02-23] MEDS: cefTRIAXone\\ROCEPHIN 2 GM in Sodium Chloride 0.9% 100 ML IVPB SCH (20:33)
[2021-02-23] MEDS: Acetaminophen 325 MG TAB PO PRN (20:34)
[2021-02-23] MEDS: Atorvastatin Calcium 20 MG TAB PO SCH (20:34)
[2021-02-24] MEDS: Budesonide 0.5 MG/2 ML NEB NEB SCH ×2 (08:02→18:48)
[2021-02-24] MEDS: Heparin 5,000 UNITS/ML VIAL SC SCH ×3 (08:34→20:55)
[2021-02-24] MEDS: Aspirin 81 mg Enteric Coated Tablet PO SCH (08:39)
[2021-02-24] MEDS: Doxycycline 100 MG CAP PO SCH ×2 (08:39→20:55)
[2021-02-24] MEDS: Gabapentin 100 MG CAP PO SCH (08:40)
[2021-02-24] MEDS: Saccharomyces boulardii 250 MG CAP PO SCH (08:40)
[2021-02-24] MEDS: Senokot S 8.6-50 MG TAB PO SCH ×2 (09:59→20:55)
[2021-02-24 11:46] LABS: ALT (SGPT) 20 U/L (8-55); AST (SGOT) 20 U/L (5-34); Albumin 3.6 g/dL (3.4-4.8); Alkaline Phosphatase 74 U/L (40-110); Anion Gap 14 mmol/L (10-20); BUN (Urea Nitrogen) 7 mg/dL (8.4-25.7); Bilirubin, Total 0.9 mg/dL (0.2-1.2); Calc. Creatinine Clearance 80 mL/min (70-130); Calcium 9.2 mg/dL (7.8-10.44); Carbon Dioxide 26 mmol/L (23-31); Chloride 104 mmol/L (98-107); Globulin 2.3 g/dL (2.4-3.5); Glucose 125 mg/dL (80-115); Potassium 3.9 mmol/L (3.5-5.1); Protein, Total 5.9 g/dL (5.8-8.1); Sodium 140 mmol/L (136-145)
[2021-02-24] MEDS: cefTRIAXone\\ROCEPHIN 2 GM in Sodium Chloride 0.9% 100 ML IVPB SCH (18:17)
[2021-02-24] MEDS: Atorvastatin Calcium 20 MG TAB PO SCH (20:55)
[2021-02-25 05:06] LABS: #Eosinphils 0.4 thou/uL (0.0-0.7); #Monocytes 0.5 thou/uL (0.11-0.59); #Neutrophils 2.4 thou/uL (1.40-6.50); %Basophils 0.2 % (0.0-1.0); %Eosinophils 8.8 % (0.0-10.0); %Lymphocytes 23.6 % (21.0-51.0); %Monocytes 11.1 % (0.0-10.0); %Neutrophils 56.3 % (42.0-75.0); Hemoglobin 10.4 g/dL (14.0-18.0); Mean Corpuscular HGB CONC 32.9 g/dL (32.0-36.0); Mean Corpuscular Hemoglobin 30.1 pg (27.0-31.0); Mean Corpuscular Volume 91.5 fL (78.0-98.0); Mean Platelet Volume 6.3 fL (7.4-10.4); Platelet Count 281 thou/uL (130-400); RBC Distribution Width 16.1 % (11.5-14.5); Red Blood Cell (RBC) Count 3.44 mill/uL (4.70-6.10); White Blood Cell (WBC) Count 4.2 thou/uL (4.8-10.8)
[2021-02-25 05:28] LABS: Anion Gap 12 mmol/L (10-20); BUN (Urea Nitrogen) 8 mg/dL (8.4-25.7); Calc. Creatinine Clearance 114 mL/min (70-130); Calcium 8.8 mg/dL (7.8-10.44); Carbon Dioxide 27 mmol/L (23-31); Chloride 104 mmol/L (98-107); Glucose 104 mg/dL (80-115); Potassium 3.6 mmol/L (3.5-5.1); Sodium 139 mmol/L (136-145)
[2021-02-25] MEDS: Budesonide 0.5 MG/2 ML NEB NEB SCH (07:56)
[2021-02-25] MEDS: Heparin 5,000 UNITS/ML VIAL SC SCH (08:15)
[2021-02-25] MEDS: Furosemide 40 MG/4 ML VIAL SLOW IVP SCH ×2 (08:16→14:00)
[2021-02-25] MEDS: Senokot S 8.6-50 MG TAB PO SCH (08:16)
[2021-02-25] MEDS: Aspirin 81 mg Enteric Coated Tablet PO SCH (08:16)
[2021-02-25] MEDS: Gabapentin 100 MG CAP PO SCH (08:17)
[2021-02-25] MEDS: Saccharomyces boulardii 250 MG CAP PO SCH (08:18)
[2021-02-25] MEDS: Doxycycline 100 MG CAP PO SCH (08:19)
[2021-02-25 13:23] VITALS: BP 110/57; TEMP 98.2
== END 2021-02-25 15:15 | disposition home or self-care (01) | DRG 602 ==
LOC: ERS 06:59 → ERHOLD 10:47 → OBSVTOIN 14:50 → 2NO 18:10
PROVIDERS: ADMIT Internal Medicine; ATTEND Hospitalist
DX: L03.116 Cellulitis of left lower limb (principal); Z20.822 Contact with and (suspected) exposure to COVID-19; I50.33 Acute on chronic diastolic (congestive) heart failure; J96.90 Respiratory failure, unspecified, unspecified whether with hypoxia or hypercapnia; E66.2 Morbid (severe) obesity with alveolar hypoventilation; I13.0 Hypertensive heart and chronic kidney disease with heart failure and stage 1 through stage 4 chronic kidney disease, or unspecified chronic kidney disease; N17.9 Acute kidney failure, unspecified; I87.2 Venous insufficiency (chronic) (peripheral); L03.115 Cellulitis of right lower limb; F32.A Depression, unspecified; I25.10 Atherosclerotic heart disease of native coronary artery without angina pectoris; E78.5 Hyperlipidemia, unspecified; E87.6 Hypokalemia; E83.42 Hypomagnesemia; N18.2 Chronic kidney disease, stage 2 (mild); D63.1 Anemia in chronic kidney disease; G89.4 Chronic pain syndrome; I95.9 Hypotension, unspecified; I08.1 Rheumatic disorders of both mitral and tricuspid valves; Z28.21 Immunization not carried out because of patient refusal; Z95.5 Presence of coronary angioplasty implant and graft; Z98.1 Arthrodesis status; Z68.39 Body mass index [BMI] 39.0-39.9, adult; Z88.8 Allergy status to other drugs, medicaments and biological substances; Z79.899 Other long term (current) drug therapy; Z79.82 Long term (current) use of aspirin; Z80.9 Family history of malignant neoplasm, unspecified
CPT/HCPCS: 36415; 36600; 71045; 71275; 80048; 80053; 82805; 83690; 83735; 83880; 84100; 84443; 84484; 85025; 87040; 93005; 93306; 93970; 94640; 94760; 96374; 96375; G0378; J0696; J1644; J1940; J2060; J3475; J3490; J7620; J7626; P9047; Q9967; U0002

== ENCOUNTER 2021-07-06 07:40 | Observation (INO) | payer MEDICARE ==
[2021-07-06 08:17] LABS: #Lymphocytes 0.8 thou/uL (1.20-3.40); #Monocytes 0.3 thou/uL (0.11-0.59); #Neutrophils 7.1 thou/uL (1.40-6.50); %Basophils 0.2 % (0.0-1.0); %Eosinophils 0.4 % (0.0-10.0); %Lymphocytes 9.9 % (21.0-51.0); %Monocytes 3.4 % (0.0-10.0); %Neutrophils 86.1 % (42.0-75.0); Mean Corpuscular HGB CONC 32.5 g/dL (32.0-36.0); Mean Corpuscular Hemoglobin 29.9 pg (27.0-31.0); Mean Corpuscular Volume 91.9 fL (78.0-98.0); Mean Platelet Volume 6.4 fL (7.4-10.4); Platelet Count 219 thou/uL (130-400); RBC Distribution Width 16.9 % (11.5-14.5); Red Blood Cell (RBC) Count 4.34 mill/uL (4.70-6.10); White Blood Cell (WBC) Count 8.2 thou/uL (4.8-10.8)
[2021-07-06 08:43] LABS: ALT (SGPT) 28 U/L (8-55); AST (SGOT) 12 U/L (5-34); Albumin 3.4 g/dL (3.4-4.8); Alkaline Phosphatase 102 U/L (40-110); Anion Gap 19 mmol/L (10-20); BUN (Urea Nitrogen) 16 mg/dL (8.4-25.7); CK (CPK) 34 U/L (30-200); Calc. Creatinine Clearance 0 mL/min (70-130); Calcium 8.4 mg/dL (7.8-10.44); Carbon Dioxide 19 mmol/L (23-31); Chloride 102 mmol/L (98-107); Globulin 2.4 g/dL (2.4-3.5); Glucose 198 mg/dL (80-115); Magnesium 2.1 mg/dL (1.6-2.6); Potassium 4.5 mmol/L (3.5-5.1); Protein, Total 5.8 g/dL (5.8-8.1); Sodium 135 mmol/L (136-145)
[2021-07-06 11:59] LABS: Bilirubin Negative (Negative); Blood, Urine Negative (Negative); Clarity Clear (Clear); Glucose, Urine (Dipstick) 50 mg/dL (Negative); Ketone, Urine Negative (Negative); Leukocyte Negative Leu/uL (Negative); Nitrite Negative (Negative); Protein, Urine (Dipstick) 20 mg/dL (Neg-Trace); Specific Gravity, Urine 1.015 (1.002-1.036); Urobilinogen Normal mg/dL (Less than 2)
[2021-07-06] MEDS ORDERED: Aspirin Chewable 81 MG TAB ONE (13:19)
[2021-07-06] MEDS ORDERED: Doxycycline 100 MG CAP PO SCH (13:30)
[2021-07-06] MEDS ORDERED: Acetaminophen 325 MG TAB PO PRN (15:50)
[2021-07-06] MEDS ORDERED: Ondansetron ODT 4 MG TAB PO PRN (15:50)
[2021-07-06] MEDS ORDERED: hydrALAZINE 20 MG/ML VIAL SLOW IVP PRN (15:51)
[2021-07-06 16:58] VITALS: BMI 37.2
[2021-07-06] MEDS: Doxycycline 100 MG CAP PO SCH (20:23)
[2021-07-06] MEDS ORDERED: Atorvastatin Calcium 40 MG TAB PO SCH (21:00)
[2021-07-06 22:21] LABS: SARS-CoV-2 PCR by NAA Not Detected (NotDetected)
[2021-07-07] MEDS: Doxycycline 100 MG CAP PO SCH (08:00)
[2021-07-07 08:57] LABS: Cardiac Risk 4.1 (Less than 4.5)
[2021-07-07] MEDS ORDERED: Gabapentin 300 MG CAP PO SCH (09:00)
[2021-07-07] MEDS ORDERED: Aspirin 81 mg Enteric Coated Tablet PO SCH (09:00)
[2021-07-07] MEDS ORDERED: Enoxaparin Sodium 40 MG/0.4 ML SYRINGE SC SCH (09:00)
[2021-07-07] MEDS ORDERED: traMADol HCl 50 MG TAB PO PRN (10:45)
[2021-07-07 16:14] VITALS: BP 114/64; TEMP 98
[2021-07-07] MEDS ORDERED: Furosemide 20 MG/2 ML VIAL SLOW IVP SCH (21:00)
== END 2021-07-07 15:15 | disposition home or self-care (01) ==
LOC: ERS 07:40 → INTOOBSV 14:41 → NEURO 14:41
PROVIDERS: ADMIT Internal Medicine; ATTEND Internal Medicine
DX: R20.2 Paresthesia of skin (principal); R20.0 Anesthesia of skin; R06.09 Other forms of dyspnea; I25.10 Atherosclerotic heart disease of native coronary artery without angina pectoris; I13.0 Hypertensive heart and chronic kidney disease with heart failure and stage 1 through stage 4 chronic kidney disease, or unspecified chronic kidney disease; N18.2 Chronic kidney disease, stage 2 (mild); I50.30 Unspecified diastolic (congestive) heart failure; N17.9 Acute kidney failure, unspecified; D63.1 Anemia in chronic kidney disease; R42 Dizziness and giddiness; R53.1 Weakness; R60.1 Generalized edema; G47.33 Obstructive sleep apnea (adult) (pediatric); G89.4 Chronic pain syndrome; L03.115 Cellulitis of right lower limb; L03.116 Cellulitis of left lower limb; M50.31 Other cervical disc degeneration, high cervical region; M50.21 Other cervical disc displacement, high cervical region; M48.02 Spinal stenosis, cervical region; M51.34 Other intervertebral disc degeneration, thoracic region; M48.04 Spinal stenosis, thoracic region; J32.9 Chronic sinusitis, unspecified; E78.1 Pure hyperglyceridemia; B35.9 Dermatophytosis, unspecified; Z79.82 Long term (current) use of aspirin; E66.9 Obesity, unspecified; Z68.37 Body mass index [BMI] 37.0-37.9, adult; Z79.899 Other long term (current) drug therapy; Z88.8 Allergy status to other drugs, medicaments and biological substances; Z95.5 Presence of coronary angioplasty implant and graft; Z98.1 Arthrodesis status; Z20.822 Contact with and (suspected) exposure to COVID-19
CPT/HCPCS: 70450; 70551; 71045; 72125; 72141; 80053; 80061; 81003; 82550; 83735; 83880; 84443; 84484; 85025; 93005; 97116; 97139 ×3; 97535; 99285; U0003; U0005; 36415; 96372; G0378; J1650

== ENCOUNTER 2021-08-18 08:01 | Inpatient (IN) | payer MEDICARE ==
[2021-08-18] MEDS ORDERED: Vancomycin 1 GM/200 ML BAG ONE (08:36)
[2021-08-18] MEDS ORDERED: Cefepime 2 GM VIAL ONE (08:36)
[2021-08-18 08:46] LABS: Hemoglobin 10.9 g/dL (14.0-18.0); Mean Corpuscular Hemoglobin 28.5 pg (27.0-31.0); Mean Corpuscular Volume 89.2 fL (78.0-98.0); Mean Platelet Volume 7.6 fL (7.4-10.4); Platelet Count 150 thou/uL (130-400); RBC Distribution Width 17.1 % (11.5-14.5); Red Blood Cell (RBC) Count 3.83 mill/uL (4.70-6.10); White Blood Cell (WBC) Count 8.3 thou/uL (4.8-10.8)
[2021-08-18 08:55] LABS: ALT (SGPT) 37 U/L (8-55); AST (SGOT) 21 U/L (5-34); Albumin 2.6 g/dL (3.4-4.8); Alkaline Phosphatase 148 U/L (40-110); Anion Gap 17 mmol/L (10-20); BUN (Urea Nitrogen) 42 mg/dL (8.4-25.7); CK (CPK) 62 U/L (30-200); Calc. Creatinine Clearance 0 mL/min (70-130); Calcium 8.4 mg/dL (7.8-10.44); Carbon Dioxide 28 mmol/L (23-31); Chloride 92 mmol/L (98-107); Globulin 2.2 g/dL (2.4-3.5); Glucose 85 mg/dL (80-115); Lipase 21 U/L (8-78); Potassium 3.8 mmol/L (3.5-5.1); Protein, Total 4.8 g/dL (5.8-8.1); Sodium 133 mmol/L (136-145)
[2021-08-18 09:15] LABS: Band 19 % (5-11); Eosinophils 1 % (0-10); Lymphocytes 7 % (21-51); MDiff Complete? YES; Metamyelocyte 1 % (0-0); Monocytes 6 % (0-10); Myelocyte 2 % (0-0); Neutrophil 62 % (42-75); Nucleated RBC 4 % (0); Platelet Morphology Comment Appears Adequate; Polychromasia MODERATE = 3-4 cells (100X) (0-2/hpf); Reactive Lymphocytes 2 % (0-10); Tear Drops SLIGHT = 2-5 cells (100X) (0-1/hpf)
[2021-08-18 09:25] LABS: CKMB 1.7 ng/mL (0-6.6)
[2021-08-18] MEDS ORDERED: Ondansetron ODT 4 MG TAB PO PRN (12:26)
[2021-08-18] MEDS ORDERED: [UNRECOGNIZED DRUG - REMARK] IVPB PRN (12:26)
[2021-08-18] MEDS ORDERED: Communication Order-Pharmacy FS SCH (12:26)
[2021-08-18] MEDS ORDERED: Ondansetron PF 4 MG/2 ML Vial IVP PRN (12:26)
[2021-08-18 13:05] LABS: Troponin I 0.531 ng/mL (< 0.028)
[2021-08-18] MEDS: Sodium Chloride 0.9% 1,000 ML IV SCH ×2 (13:31→20:58)
[2021-08-18 14:57] LABS: Troponin I 0.51 ng/mL (< 0.028)
[2021-08-18 16:34] VITALS: BMI 36.6
[2021-08-18 18:50] LABS: Lactic Acid 3.4 mmol/L (0.5-2.2)
[2021-08-18] MEDS: Cefepime 1 GM in Sodium Chloride 0.9% 100 ML IVPB SCH (20:56)
[2021-08-18] MEDS: Famotidine/PF 20 mg/2ml Vial SLOW IVP SCH (20:58)
[2021-08-19] MEDS ORDERED: Sodium Chloride 0.9% 500 ML IV SCH (00:30)
[2021-08-19] MEDS: Acetaminophen 500 MG TAB PO PRN ×2 (00:35→18:38)
[2021-08-19] MEDS ORDERED: Norepinephrine 8 MG/0.9% NS 250 ML IVPB SCH (01:45)
[2021-08-19 04:23] LABS: ALT (SGPT) 33 U/L (8-55); AST (SGOT) 42 U/L (5-34); Albumin 1.8 g/dL (3.4-4.8); Alkaline Phosphatase 134 U/L (40-110); Anion Gap 17 mmol/L (10-20); Calc. Creatinine Clearance 51 mL/min (70-130); Calcium 7.5 mg/dL (7.8-10.44); Carbon Dioxide 16 mmol/L (23-31); Chloride 102 mmol/L (98-107); Globulin 2.8 g/dL (2.4-3.5); Glucose 98 mg/dL (80-115); Magnesium 2.6 mg/dL (1.6-2.6); Protein, Total 4.6 g/dL (5.8-8.1); Sodium 131 mmol/L (136-145)
[2021-08-19 06:34] LABS: #Eosinphils 0.1 thou/uL (0.0-0.7); #Lymphocytes 0.7 thou/uL (1.20-3.40); #Monocytes 0.3 thou/uL (0.11-0.59); #Neutrophils 7.1 thou/uL (1.40-6.50); %Basophils 0.1 % (0.0-1.0); %Eosinophils 0.8 % (0.0-10.0); %Lymphocytes 8.3 % (21.0-51.0); %Monocytes 3.4 % (0.0-10.0); %Neutrophils 87.4 % (42.0-75.0); Hemoglobin 10.5 g/dL (14.0-18.0); Mean Corpuscular HGB CONC 33.1 g/dL (32.0-36.0); Mean Corpuscular Hemoglobin 29.1 pg (27.0-31.0); Mean Corpuscular Volume 87.8 fL (78.0-98.0); Mean Platelet Volume 7.2 fL (7.4-10.4); Platelet Count 131 thou/uL (130-400); RBC Distribution Width 17.1 % (11.5-14.5); Red Blood Cell (RBC) Count 3.62 mill/uL (4.70-6.10); White Blood Cell (WBC) Count 8.1 thou/uL (4.8-10.8)
[2021-08-19 07:00] LABS: BUN (Urea Nitrogen) 39 mg/dL (8.4-25.7)
[2021-08-19] MEDS: Cefepime 1 GM in Sodium Chloride 0.9% 100 ML IVPB SCH ×2 (08:44→20:24)
[2021-08-19] MEDS: Sodium Chloride 0.9% 1,000 ML IV SCH ×2 (08:44→18:39)
[2021-08-19 11:02] LABS: Vancomycin, Random 7.1 ug/mL (See Comment)
[2021-08-19] MEDS ORDERED: Sodium Chloride 0.9% 1,000 ML IV SCH (11:15)
[2021-08-19] MEDS: Hydrocortisone Sod Succ/PF 100 mg/2 ml Vial IVP SCH ×2 (11:15→17:13)
[2021-08-19] MEDS: Vancomycin 1 GM in Premix Bag 1 BAG IVPB SCH (13:21)
[2021-08-19] MEDS: Albumin 25% 25 GM/100 ML BOT IVPB SCH ×2 (14:18→20:24)
[2021-08-19] MEDS: Oxymetazoline HCl 0.05% (30 ML BOT) NS PRN (17:13)
[2021-08-19 18:44] LABS: Bacteria/HPF 3+ HPF (None Seen); Bilirubin Negative (Negative); Blood, Urine 2+ (Negative); Clarity Turbid (Clear); Glucose, Urine (Dipstick) 500 mg/dL (Negative); Ketone, Urine Negative (Negative); Leukocyte 250 Leu/uL (Negative); Nitrite Negative (Negative); Protein, Urine (Dipstick) 50 mg/dL (Neg-Trace); Specific Gravity, Urine 1.015 (1.002-1.036); Squamous Epithelial None Seen HPF (0-3); Urobilinogen Normal mg/dL (Less than 2); WBC/HPF 21-50 HPF (0-3); pH, Urine 5.5 (5.0-9.0)
[2021-08-19 18:47] LABS: Urine Culture Reflex Yes Yes
[2021-08-19] MEDS: Famotidine/PF 20 mg/2ml Vial SLOW IVP SCH (20:24)
[2021-08-19] MEDS: Gabapentin 300 MG CAP PO SCH (20:25)
[2021-08-19] MEDS: Atorvastatin Calcium 20 MG TAB PO SCH (20:26)
[2021-08-20] MEDS: Hydrocortisone Sod Succ/PF 100 mg/2 ml Vial IVP SCH ×2 (00:50→05:37)
[2021-08-20] MEDS: Albumin 25% 25 GM/100 ML BOT IVPB SCH ×2 (01:24→08:14)
[2021-08-20 04:04] LABS: #Lymphocytes 0.3 thou/uL (1.20-3.40); #Monocytes 0.2 thou/uL (0.11-0.59); #Neutrophils 3.7 thou/uL (1.40-6.50); %Basophils 0.6 % (0.0-1.0); %Eosinophils 0.3 % (0.0-10.0); %Lymphocytes 6.4 % (21.0-51.0); %Neutrophils 88.6 % (42.0-75.0); Hemoglobin 7.4 g/dL (14.0-18.0); Mean Corpuscular HGB CONC 32.6 g/dL (32.0-36.0); Mean Corpuscular Volume 88.9 fL (78.0-98.0); Mean Platelet Volume 7.5 fL (7.4-10.4); Platelet Count 108 thou/uL (130-400); RBC Distribution Width 16.7 % (11.5-14.5); Red Blood Cell (RBC) Count 2.55 mill/uL (4.70-6.10); White Blood Cell (WBC) Count 4.2 thou/uL (4.8-10.8)
[2021-08-20 04:24] LABS: ALT (SGPT) 26 U/L (8-55); AST (SGOT) 18 U/L (5-34); Albumin 2.9 g/dL (3.4-4.8); Alkaline Phosphatase 95 U/L (40-110); Anion Gap 13 mmol/L (10-20); BUN (Urea Nitrogen) 21 mg/dL (8.4-25.7); Calc. Creatinine Clearance 101 mL/min (70-130); Calcium 7.8 mg/dL (7.8-10.44); Carbon Dioxide 24 mmol/L (23-31); Chloride 104 mmol/L (98-107); Estimated GFR 68; Globulin 1.5 g/dL (2.4-3.5); Glucose 142 mg/dL (80-115); Potassium 3.6 mmol/L (3.5-5.1); Protein, Total 4.4 g/dL (5.8-8.1); Sodium 137 mmol/L (136-145)
[2021-08-20] MEDS: Sodium Chloride 0.9% 1,000 ML IV SCH (05:38)
[2021-08-20] MEDS: Aspirin 81 mg Enteric Coated Tablet PO SCH (08:14)
[2021-08-20] MEDS: Gabapentin 300 MG CAP PO SCH ×2 (08:14→21:15)
[2021-08-20] MEDS: Cefepime 2 GM in Sodium Chloride 0.9% 100 ML IVPB SCH ×2 (08:15→21:14)
[2021-08-20] MEDS: Oxymetazoline HCl 0.05% (30 ML BOT) NS PRN (08:21)
[2021-08-20] MEDS: Vancomycin 1 GM in Premix Bag 1 BAG IVPB SCH (13:03)
[2021-08-20 18:02] LABS: Troponin I 0.146 ng/mL (< 0.028)
[2021-08-20 18:16] LABS: Hemoglobin 7.5 g/dL (14.0-18.0); Platelet Count 109 thou/uL (130-400)
[2021-08-20] MEDS: Atorvastatin Calcium 20 MG TAB PO SCH (21:14)
[2021-08-20] MEDS: Famotidine/PF 20 mg/2ml Vial SLOW IVP SCH (21:15)
[2021-08-20] MEDS: predniSONE 20 MG TAB PO SCH (21:15)
[2021-08-21 06:06] LABS: Hemoglobin 7.4 g/dL (14.0-18.0); Mean Corpuscular HGB CONC 31.8 g/dL (32.0-36.0); Mean Corpuscular Hemoglobin 28.4 pg (27.0-31.0); Mean Corpuscular Volume 89.3 fL (78.0-98.0); Mean Platelet Volume 7.1 fL (7.4-10.4); Platelet Count 104 thou/uL (130-400); RBC Distribution Width 16.7 % (11.5-14.5); Red Blood Cell (RBC) Count 2.61 mill/uL (4.70-6.10); White Blood Cell (WBC) Count 3.9 thou/uL (4.8-10.8)
[2021-08-21 06:26] LABS: Anion Gap 9 mmol/L (10-20); BUN (Urea Nitrogen) 21 mg/dL (8.4-25.7); Calc. Creatinine Clearance 109 mL/min (70-130); Calcium 8.4 mg/dL (7.8-10.44); Carbon Dioxide 26 mmol/L (23-31); Chloride 106 mmol/L (98-107); Estimated GFR 72; Glucose 174 mg/dL (80-115); Potassium 3.9 mmol/L (3.5-5.1); Sodium 137 mmol/L (136-145)
[2021-08-21] MEDS: Oxymetazoline HCl 0.05% (30 ML BOT) NS PRN ×2 (06:29→07:39)
[2021-08-21] MEDS: Cefepime 2 GM in Sodium Chloride 0.9% 100 ML IVPB SCH ×2 (07:31→21:28)
[2021-08-21] MEDS: Gabapentin 300 MG CAP PO SCH ×2 (07:31→21:27)
[2021-08-21] MEDS: Aspirin 81 mg Enteric Coated Tablet PO SCH (07:32)
[2021-08-21] MEDS: predniSONE 20 MG TAB PO SCH ×2 (07:32→21:27)
[2021-08-21 11:39] LABS: Vancomycin, Trough 9.4 ug/mL
[2021-08-21] MEDS: Vancomycin 1.5 GRAM/300 ML BAG 1.5 GM in Premix Bag 1 BAG IVPB SCH (12:50)
[2021-08-21] MEDS: Atorvastatin Calcium 20 MG TAB PO SCH (21:27)
[2021-08-21] MEDS: Famotidine/PF 20 mg/2ml Vial SLOW IVP SCH ×2 (21:27→21:30)
[2021-08-22 06:46] LABS: Hemoglobin 8.4 g/dL (14.0-18.0); Mean Corpuscular HGB CONC 32.3 g/dL (32.0-36.0); Mean Corpuscular Hemoglobin 28.9 pg (27.0-31.0); Mean Corpuscular Volume 89.7 fL (78.0-98.0); Mean Platelet Volume 6.9 fL (7.4-10.4); Platelet Count 99 thou/uL (130-400); RBC Distribution Width 16.6 % (11.5-14.5); Red Blood Cell (RBC) Count 2.89 mill/uL (4.70-6.10); White Blood Cell (WBC) Count 4.9 thou/uL (4.8-10.8)
[2021-08-22 06:47] LABS: Reticulocyte Count 2.7 % (0.5-1.5)
[2021-08-22 07:20] LABS: Iron 38 ug/dL (65-175); Iron Binding Capacity, Total 171 mcg/dL (261-462)
[2021-08-22] MEDS ORDERED: Ferrous Sulfate 325 MG TAB PO SCH (08:45)
[2021-08-22] MEDS: Cefepime 2 GM in Sodium Chloride 0.9% 100 ML IVPB SCH ×2 (08:49→20:43)
[2021-08-22] MEDS: predniSONE 20 MG TAB PO SCH ×2 (08:49→20:44)
[2021-08-22] MEDS: Aspirin 81 mg Enteric Coated Tablet PO SCH (08:49)
[2021-08-22] MEDS: Gabapentin 300 MG CAP PO SCH ×2 (08:49→20:44)
[2021-08-22] MEDS: Oxymetazoline HCl 0.05% (30 ML BOT) NS PRN (09:02)
[2021-08-22] MEDS: Vancomycin 1.5 GRAM/300 ML BAG 1.5 GM in Premix Bag 1 BAG IVPB SCH (12:51)
[2021-08-22] MEDS: Atorvastatin Calcium 20 MG TAB PO SCH (20:44)
[2021-08-22] MEDS: Famotidine/PF 20 mg/2ml Vial SLOW IVP SCH (20:48)
[2021-08-23] MEDS: Cefepime 2 GM in Sodium Chloride 0.9% 100 ML IVPB SCH (09:15)
[2021-08-23] MEDS: Gabapentin 300 MG CAP PO SCH ×2 (09:16→20:20)
[2021-08-23] MEDS: Aspirin 81 mg Enteric Coated Tablet PO SCH (09:16)
[2021-08-23] MEDS: predniSONE 20 MG TAB PO SCH ×2 (09:16→20:19)
[2021-08-23] MEDS: Ferrous Sulfate 325 MG TAB PO SCH (09:16)
[2021-08-23 11:43] LABS: Vancomycin, Trough 14.3 ug/mL
[2021-08-23] MEDS ORDERED: VANCOMYCIN 1.75 GM/500 ML BAG 1.75 GM in Premix Bag 1 BAG IVPB SCH (12:00)
[2021-08-23] MEDS ORDERED: Vancomycin HCl 1.75 GM in Sodium Chloride 0.9% 500 ML IVPB SCH (14:30)
[2021-08-23] MEDS: Atorvastatin Calcium 20 MG TAB PO SCH (20:20)
[2021-08-23] MEDS: Famotidine/PF 20 mg/2ml Vial SLOW IVP SCH ×2 (20:20→20:21)
[2021-08-24 06:48] LABS: Anion Gap 16 mmol/L (10-20); BUN (Urea Nitrogen) 21 mg/dL (8.4-25.7); Calc. Creatinine Clearance 125 mL/min (70-130); Calcium 8.4 mg/dL (7.8-10.44); Carbon Dioxide 19 mmol/L (23-31); Chloride 112 mmol/L (98-107); Estimated GFR 82; Glucose 201 mg/dL (80-115); Magnesium 2.4 mg/dL (1.6-2.6); Potassium 5.9 mmol/L (3.5-5.1); Sodium 141 mmol/L (136-145)
[2021-08-24 08:35] LABS: Anisocytosis SLIGHT = 6-15 cells (100X) (0-5/hpf); Band 9 % (5-11); Hemoglobin 8.2 g/dL (14.0-18.0); Lymphocytes 8 % (21-51); MDiff Complete? YES; Mean Corpuscular HGB CONC 31.6 g/dL (32.0-36.0); Mean Corpuscular Hemoglobin 28.3 pg (27.0-31.0); Mean Corpuscular Volume 89.6 fL (78.0-98.0); Mean Platelet Volume 8.3 fL (7.4-10.4); Metamyelocyte 2 % (0-0); Monocytes 4 % (0-10); Myelocyte 1 % (0-0); Neutrophil 76 % (42-75); Nucleated RBC 4 % (0); Ovalocytes SLIGHT = 2-5 cells (100X) (0-1/hpf); Platelet Count 113 thou/uL (130-400); Platelet Morphology Comment Appears Decreased; Polychromasia MODERATE = 3-4 cells (100X) (0-2/hpf); RBC Distribution Width 17.4 % (11.5-14.5); Reflex for Review?? NO; Schistocytes SLIGHT = 2-5 cells (100X) (0-1/hpf); Tear Drops SLIGHT = 2-5 cells (100X) (0-1/hpf); White Blood Cell (WBC) Count 5.4 thou/uL (4.8-10.8)
[2021-08-24] MEDS: Gabapentin 300 MG CAP PO SCH ×2 (10:19→20:53)
[2021-08-24] MEDS: Aspirin 81 mg Enteric Coated Tablet PO SCH (10:20)
[2021-08-24] MEDS: Ferrous Sulfate 325 MG TAB PO SCH (10:20)
[2021-08-24] MEDS: predniSONE 20 MG TAB PO SCH ×2 (10:20→20:53)
[2021-08-24] MEDS ORDERED: VANCOMYCIN 1.75 GM/500 ML BAG 1.75 GM in Premix Bag 1 BAG IVPB SCH (12:00)
[2021-08-24] MEDS: Famotidine/PF 20 mg/2ml Vial SLOW IVP SCH (20:53)
[2021-08-24] MEDS: Atorvastatin Calcium 20 MG TAB PO SCH (20:54)
[2021-08-25] MEDS: Aspirin 81 mg Enteric Coated Tablet PO SCH (09:34)
[2021-08-25] MEDS: Gabapentin 300 MG CAP PO SCH ×2 (09:34→19:46)
[2021-08-25] MEDS: Ferrous Sulfate 325 MG TAB PO SCH (09:34)
[2021-08-25] MEDS: predniSONE 20 MG TAB PO SCH ×2 (10:31→19:45)
[2021-08-25 12:57] LABS: Anion Gap 16 mmol/L (10-20); BUN (Urea Nitrogen) 20 mg/dL (8.4-25.7); Calc. Creatinine Clearance 109 mL/min (70-130); Calcium 8.7 mg/dL (7.8-10.44); Carbon Dioxide 19 mmol/L (23-31); Chloride 110 mmol/L (98-107); Estimated GFR 70; Glucose 147 mg/dL (80-115); Potassium 5.5 mmol/L (3.5-5.1); Sodium 139 mmol/L (136-145)
[2021-08-25] MEDS: Atorvastatin Calcium 20 MG TAB PO SCH (19:50)
[2021-08-25] MEDS ORDERED: Famotidine 20 MG TAB PO SCH (21:00)
[2021-08-26] MEDS: Aspirin 81 mg Enteric Coated Tablet PO SCH (07:57)
[2021-08-26] MEDS: Ferrous Sulfate 325 MG TAB PO SCH (07:57)
[2021-08-26] MEDS: Gabapentin 300 MG CAP PO SCH (07:57)
[2021-08-26] MEDS: predniSONE 20 MG TAB PO SCH (07:57)
[2021-08-26 15:59] VITALS: BP 133/78; TEMP 97.8
== END 2021-08-26 18:26 | DRG 643 ==
LOC: ERS 08:01 → ERHOLD 10:58 → 2NO 15:55 → CCU 08-19 01:56 → T4-B 08-20 11:13
PROVIDERS: ADMIT Hospitalist; ATTEND Hospitalist
PROC: 3E033XZ Introduction of Vasopressor into Peripheral Vein, Percutaneous Approach (ICD-10-PCS; principal; 2021-08-18)
DX: E27.1 Primary adrenocortical insufficiency (principal); G93.41 Metabolic encephalopathy; J18.9 Pneumonia, unspecified organism; I21.A1 Myocardial infarction type 2; J96.01 Acute respiratory failure with hypoxia; R57.1 Hypovolemic shock; E24.9 Cushing's syndrome, unspecified; N17.9 Acute kidney failure, unspecified; I47.1 Supraventricular tachycardia; L03.116 Cellulitis of left lower limb; N39.0 Urinary tract infection, site not specified; Z20.822 Contact with and (suspected) exposure to COVID-19; E78.5 Hyperlipidemia, unspecified; I12.9 Hypertensive chronic kidney disease with stage 1 through stage 4 chronic kidney disease, or unspecified chronic kidney disease; I87.8 Other specified disorders of veins; Z96.619 Presence of unspecified artificial shoulder joint; N18.9 Chronic kidney disease, unspecified; E86.0 Dehydration; E88.09 Other disorders of plasma-protein metabolism, not elsewhere classified; N18.30 Chronic kidney disease, stage 3 unspecified; D50.9 Iron deficiency anemia, unspecified; T38.0X5A Adverse effect of glucocorticoids and synthetic analogues, initial encounter; E66.01 Morbid (severe) obesity due to excess calories; Z68.36 Body mass index [BMI] 36.0-36.9, adult; Z98.1 Arthrodesis status; Z95.5 Presence of coronary angioplasty implant and graft; Z79.899 Other long term (current) drug therapy; Z79.52 Long term (current) use of systemic steroids; Z88.8 Allergy status to other drugs, medicaments and biological substances; Z82.49 Family history of ischemic heart disease and other diseases of the circulatory system
CPT/HCPCS: 36415; 36416; 71045; 80048; 80053; 80202; 81001; 82550; 82553; 82728; 83540; 83550; 83605; 83690; 83735; 84145; 84443; 84484; 85025; 85027; 85046; 87040; 87086; 93005; 96361; 96365; 96367; 97139; J0692; J1720; J3370; J3490; J7030; J7050; J7512; P9047; S0028; U0003; U0005

== ENCOUNTER 2021-10-02 14:16 | Inpatient (IN) | payer MEDICARE ==
[2021-10-02] MEDS ORDERED: Iopamidol-370 76% 500 ML 1 ML ONE (14:25)
[2021-10-02] MEDS ORDERED: Promethazine HCl 12.5 MG in Sodium Chloride 0.9% 50 ML IVPB SCH (15:45)
[2021-10-02 15:48] LABS: #Monocytes 1.2 thou/uL (0.11-0.59); #Neutrophils 11.7 thou/uL (1.40-6.50); %Basophils 0.2 % (0.0-1.0); %Eosinophils 0.4 % (0.0-10.0); %Lymphocytes 6.8 % (21.0-51.0); %Monocytes 8.5 % (0.0-10.0); %Neutrophils 84.1 % (42.0-75.0); Hemoglobin 10.7 g/dL (14.0-18.0); Mean Corpuscular HGB CONC 30.6 g/dL (32.0-36.0); Mean Corpuscular Hemoglobin 26.9 pg (27.0-31.0); Mean Platelet Volume 6.5 fL (7.4-10.4); Platelet Count 286 thou/uL (130-400); RBC Distribution Width 18.4 % (11.5-14.5); Red Blood Cell (RBC) Count 3.98 mill/uL (4.70-6.10); White Blood Cell (WBC) Count 13.9 thou/uL (4.8-10.8)
[2021-10-02 16:11] LABS: ALT (SGPT) 39 U/L (8-55); AST (SGOT) 16 U/L (5-34); Albumin 3.2 g/dL (3.4-4.8); Alkaline Phosphatase 86 U/L (40-110); Anion Gap 14 mmol/L (10-20); BUN (Urea Nitrogen) 18 mg/dL (8.4-25.7); Bilirubin, Total 0.8 mg/dL (0.2-1.2); Calc. Creatinine Clearance 0 mL/min (70-130); Calcium 8.4 mg/dL (7.8-10.44); Carbon Dioxide 29 mmol/L (23-31); Chloride 98 mmol/L (98-107); Estimated GFR 97; Globulin 1.9 g/dL (2.4-3.5); Glucose 70 mg/dL (80-115); Lipase 39 U/L (8-78); Potassium 4.3 mmol/L (3.5-5.1); Protein, Total 5.1 g/dL (5.8-8.1); Sodium 137 mmol/L (136-145)
[2021-10-02] MEDS ORDERED: methylPREDNISolone Sod Succ 40 MG VIAL ONE (18:37)
[2021-10-02] MEDS ORDERED: Sodium Chloride 0.9% 1,000 ML IV SCH (19:45)
[2021-10-02] MEDS ORDERED: Acetaminophen 325 MG TAB PO PRN (20:18)
[2021-10-02] MEDS ORDERED: Ondansetron PF 4 MG/2 ML Vial IVP PRN (20:18)
[2021-10-02 20:20] VITALS: BMI 38.0
[2021-10-02] MEDS ORDERED: Dextrose 5% in Water 1,000 ML IV PRN (20:20)
[2021-10-02] MEDS ORDERED: Dextrose 50% Abboject 50 ML SYRINGE SLOW IVP PRN (20:20)
[2021-10-02] MEDS ORDERED: Pantoprazole 40 MG VIAL IVP SCH (20:45)
[2021-10-02] MEDS: Ampicillin/Sulbactam 3 GM in Sodium Chloride 0.9% 100 ML IVPB SCH (21:00)
[2021-10-02] MEDS: Dextrose 5 % And 0.9 % NaCl 1,000 ML IV SCH (22:11)
[2021-10-03] MEDS: Ampicillin/Sulbactam 3 GM in Sodium Chloride 0.9% 100 ML IVPB SCH ×4 (02:04→20:30)
[2021-10-03 06:13] LABS: #Lymphocytes 0.7 thou/uL (1.20-3.40); #Monocytes 0.6 thou/uL (0.11-0.59); #Neutrophils 7.4 thou/uL (1.40-6.50); %Basophils 0.2 % (0.0-1.0); %Eosinophils 0.3 % (0.0-10.0); %Monocytes 7.1 % (0.0-10.0); %Neutrophils 84.4 % (42.0-75.0); Hemoglobin 10.2 g/dL (14.0-18.0); Mean Corpuscular HGB CONC 30.5 g/dL (32.0-36.0); Mean Corpuscular Hemoglobin 26.8 pg (27.0-31.0); Mean Platelet Volume 6.4 fL (7.4-10.4); Platelet Count 248 thou/uL (130-400); RBC Distribution Width 18.6 % (11.5-14.5); White Blood Cell (WBC) Count 8.8 thou/uL (4.8-10.8)
[2021-10-03 06:32] LABS: Anion Gap 12 mmol/L (10-20); BUN (Urea Nitrogen) 13 mg/dL (8.4-25.7); Calc. Creatinine Clearance 148 mL/min (70-130); Calcium 8.2 mg/dL (7.8-10.44); Carbon Dioxide 28 mmol/L (23-31); Chloride 103 mmol/L (98-107); Estimated GFR 98; Glucose 111 mg/dL (80-115); Potassium 4.5 mmol/L (3.5-5.1); Sodium 138 mmol/L (136-145)
[2021-10-03] MEDS: Dextrose 5 % And 0.9 % NaCl 1,000 ML IV SCH ×2 (07:20→18:35)
[2021-10-03] MEDS: methylPREDNISolone Sod Succ 40 MG VIAL IVP SCH ×2 (08:03→20:59)
[2021-10-03] MEDS: Enoxaparin Sodium 40 MG/0.4 ML SYRINGE SC SCH (08:08)
[2021-10-03] MEDS: Pantoprazole 40 MG VIAL IVP SCH (08:08)
[2021-10-03] MEDS ORDERED: MD-Gastroview 120 ML BOT ONE (09:36)
[2021-10-03] MEDS ORDERED: Haloperidol Lactate 5 MG/ML VIAL ONE (13:21)
[2021-10-03] MEDS: Melatonin 3 MG TAB PO SCH (20:58)
[2021-10-04] MEDS: Ampicillin/Sulbactam 3 GM in Sodium Chloride 0.9% 100 ML IVPB SCH ×4 (00:09→17:22)
[2021-10-04] MEDS: Dextrose 5 % And 0.9 % NaCl 1,000 ML IV SCH ×2 (00:09→10:23)
[2021-10-04 07:49] LABS: #Eosinphils 0.1 thou/uL (0.0-0.7); #Lymphocytes 0.9 thou/uL (1.20-3.40); #Monocytes 0.7 thou/uL (0.11-0.59); %Basophils 0.3 % (0.0-1.0); %Eosinophils 1.6 % (0.0-10.0); %Lymphocytes 12.7 % (21.0-51.0); %Monocytes 9.8 % (0.0-10.0); %Neutrophils 75.6 % (42.0-75.0); Hemoglobin 10.4 g/dL (14.0-18.0); Mean Corpuscular HGB CONC 30.6 g/dL (32.0-36.0); Mean Corpuscular Hemoglobin 27.5 pg (27.0-31.0); Mean Corpuscular Volume 89.9 fL (78.0-98.0); Mean Platelet Volume 6.7 fL (7.4-10.4); Platelet Count 228 thou/uL (130-400); RBC Distribution Width 18.6 % (11.5-14.5); Red Blood Cell (RBC) Count 3.79 mill/uL (4.70-6.10); White Blood Cell (WBC) Count 6.7 thou/uL (4.8-10.8)
[2021-10-04] MEDS: Enoxaparin Sodium 40 MG/0.4 ML SYRINGE SC SCH (08:08)
[2021-10-04] MEDS: methylPREDNISolone Sod Succ 40 MG VIAL IVP SCH (08:08)
[2021-10-04] MEDS: Pantoprazole 40 MG VIAL IVP SCH (08:09)
[2021-10-04 08:10] LABS: Anion Gap 13 mmol/L (10-20); BUN (Urea Nitrogen) 12 mg/dL (8.4-25.7); Calc. Creatinine Clearance 144 mL/min (70-130); Carbon Dioxide 27 mmol/L (23-31); Chloride 108 mmol/L (98-107); Estimated GFR 97; Glucose 91 mg/dL (80-115); Magnesium 2.1 mg/dL (1.6-2.6); Potassium 3.6 mmol/L (3.5-5.1); Sodium 144 mmol/L (136-145)
[2021-10-04] MEDS ORDERED: Bisacodyl 5 MG TAB PO PRN (18:56)
[2021-10-04] MEDS ORDERED: Amitriptyline HCl 10 MG TAB PO PRN (19:05)
[2021-10-04] MEDS ORDERED: Atorvastatin Calcium 20 MG TAB PO SCH (21:00)
[2021-10-04] MEDS ORDERED: Lisinopril 5 MG TAB PO SCH (21:00)
[2021-10-04] MEDS: Melatonin 3 MG TAB PO SCH (21:10)
[2021-10-04] MEDS: Gabapentin 300 MG CAP PO SCH (21:10)
[2021-10-04] MEDS: predniSONE 20 MG TAB PO SCH (21:11)
[2021-10-04] MEDS: Calcium Carbonate 500 MG TAB PO SCH (21:11)
[2021-10-04] MEDS: Amoxicillin/Potassium Clav 875 MG TAB PO SCH (21:11)
[2021-10-05 05:53] LABS: #Lymphocytes 0.6 thou/uL (1.20-3.40); #Monocytes 0.4 thou/uL (0.11-0.59); #Neutrophils 4.4 thou/uL (1.40-6.50); %Basophils 0.3 % (0.0-1.0); %Eosinophils 0.8 % (0.0-10.0); %Lymphocytes 11.4 % (21.0-51.0); %Monocytes 7.3 % (0.0-10.0); %Neutrophils 80.2 % (42.0-75.0); Mean Corpuscular HGB CONC 30.5 g/dL (32.0-36.0); Mean Corpuscular Hemoglobin 27.3 pg (27.0-31.0); Mean Corpuscular Volume 89.3 fL (78.0-98.0); Mean Platelet Volume 6.6 fL (7.4-10.4); Platelet Count 196 thou/uL (130-400); RBC Distribution Width 18.5 % (11.5-14.5); Red Blood Cell (RBC) Count 3.68 mill/uL (4.70-6.10); White Blood Cell (WBC) Count 5.5 thou/uL (4.8-10.8)
[2021-10-05 06:25] LABS: Anion Gap 13 mmol/L (10-20); BUN (Urea Nitrogen) 10 mg/dL (8.4-25.7); Calc. Creatinine Clearance 153 mL/min (70-130); Calcium 7.8 mg/dL (7.8-10.44); Carbon Dioxide 22 mmol/L (23-31); Chloride 109 mmol/L (98-107); Estimated GFR 99; Glucose 113 mg/dL (80-115); Potassium 4.1 mmol/L (3.5-5.1); Sodium 140 mmol/L (136-145)
[2021-10-05] MEDS ORDERED: Ferrous Sulfate 325 MG TAB PO SCH (08:00)
[2021-10-05] MEDS: Enoxaparin Sodium 40 MG/0.4 ML SYRINGE SC SCH (08:26)
[2021-10-05] MEDS: Gabapentin 300 MG CAP PO SCH (08:26)
[2021-10-05] MEDS: Calcium Carbonate 500 MG TAB PO SCH ×2 (08:26→14:31)
[2021-10-05] MEDS: Amoxicillin/Potassium Clav 875 MG TAB PO SCH (08:27)
[2021-10-05] MEDS: predniSONE 20 MG TAB PO SCH (08:27)
[2021-10-05] MEDS: Pantoprazole 40 MG VIAL IVP SCH (08:28)
[2021-10-05] MEDS ORDERED: NIFEdipine XL 60 MG TAB PO SCH (09:00)
[2021-10-05] MEDS ORDERED: Aspirin 81 mg Enteric Coated Tablet PO SCH (09:00)
[2021-10-05 15:21] VITALS: BP 99/68; TEMP 98
[2021-10-05] MEDS ORDERED: Senokot S 8.6-50 MG TAB PO SCH (21:00)
[2021-10-06] MEDS ORDERED: Polyethylene Glycol 3350 17 GM Packet PO SCH (09:00)
== END 2021-10-05 15:30 | disposition home or self-care (01) | DRG 389 ==
LOC: ERS 14:16 → SJJU 18:21
PROVIDERS: ADMIT Family Medicine; ATTEND Family Medicine
PROC: 0D9670Z Drainage of Stomach with Drainage Device, Via Natural or Artificial Opening (ICD-10-PCS; principal; 2021-10-02)
DX: K56.600 Partial intestinal obstruction, unspecified as to cause (principal); E27.40 Unspecified adrenocortical insufficiency; Z20.822 Contact with and (suspected) exposure to COVID-19; G47.33 Obstructive sleep apnea (adult) (pediatric); N18.30 Chronic kidney disease, stage 3 unspecified; I12.9 Hypertensive chronic kidney disease with stage 1 through stage 4 chronic kidney disease, or unspecified chronic kidney disease; E78.5 Hyperlipidemia, unspecified; I25.10 Atherosclerotic heart disease of native coronary artery without angina pectoris; D63.1 Anemia in chronic kidney disease; R13.10 Dysphagia, unspecified; E16.2 Hypoglycemia, unspecified; F32.A Depression, unspecified; D72.829 Elevated white blood cell count, unspecified; K59.00 Constipation, unspecified; Z88.8 Allergy status to other drugs, medicaments and biological substances; Z98.1 Arthrodesis status; Z79.82 Long term (current) use of aspirin; Z79.899 Other long term (current) drug therapy; Z79.52 Long term (current) use of systemic steroids
CPT/HCPCS: 36415; 36416; 71045; 74018; 74177; 74250; 80048; 80053; 83605; 83690; 83735; 85025; 93005; 96365; 96366; 96375; 97139; C9113; J0295; J1630; J1650; J2550; J2920; J3490; J7042; J7512; Q9963; Q9967

== ENCOUNTER 2022-01-03 10:40 | Inpatient (IN) | payer MEDICARE ==
[2022-01-03 11:19] LABS: #Eosinphils 0.1 thou/uL (0.0-0.7); #Lymphocytes 1.3 thou/uL (1.20-3.40); #Monocytes 1.5 thou/uL (0.11-0.59); #Neutrophils 11.2 thou/uL (1.40-6.50); %Basophils 0.2 % (0.0-1.0); %Eosinophils 0.7 % (0.0-10.0); %Lymphocytes 9.4 % (21.0-51.0); %Monocytes 10.6 % (0.0-10.0); %Neutrophils 79.1 % (42.0-75.0); Hemoglobin 12.1 g/dL (14.0-18.0); Mean Corpuscular HGB CONC 32.2 g/dL (32.0-36.0); Mean Corpuscular Hemoglobin 27.4 pg (27.0-31.0); Mean Corpuscular Volume 85.1 fl (78.0-98.0); Mean Platelet Volume 7.3 fL (7.4-10.4); Platelet Count 215 10x3/uL (130-400); RBC Distribution Width 18.7 % (11.5-14.5); Red Blood Cell (RBC) Count 4.43 mill/uL (4.70-6.10); White Blood Cell (WBC) Count 14.2 10x3/uL (4.8-10.8)
[2022-01-03 11:34] LABS: ALT (SGPT) 28 U/L (8-55); AST (SGOT) 21 U/L (5-34); Albumin 3.1 g/dL (3.4-4.8); Alkaline Phosphatase 137 U/L (40-110); Anion Gap 20 mmol/L (10-20); BUN (Urea Nitrogen) 41 mg/dL (8.4-25.7); Bilirubin, Total 1.8 mg/dL (0.2-1.2); Calc. Creatinine Clearance 0 mL/min (70-130); Calcium 8.5 mg/dL (7.8-10.44); Carbon Dioxide 17 mmol/L (23-31); Chloride 99 mmol/L (98-107); Estimated GFR 16; Globulin 2.3 g/dL (2.4-3.5); Glucose 134 mg/dL (80-115); Potassium 3.8 mmol/L (3.5-5.1); Protein, Total 5.4 g/dL (5.8-8.1); Sodium 132 mmol/L (136-145)
[2022-01-03] MEDS ORDERED: FENTANYL 50 MCG/ML 1 ML VIAL ONE ×2 (11:42→11:50)
[2022-01-03 11:56] LABS: Bilirubin Negative (Negative); Blood, Urine Negative (Negative); Clarity Turbid (Clear); Glucose, Urine (Dipstick) Normal (Negative); Ketone, Urine Trace mg/dL (Negative); Leukocyte 250 Leu/uL (Negative); Protein, Urine (Dipstick) 20 mg/dL (Neg-Trace); Specific Gravity, Urine 1.024 (1.002-1.036)
[2022-01-03 12:10] LABS: CKMB 4.1 ng/mL (0-6.6)
[2022-01-03 12:25] LABS: Nitrite Negative (Negative)
[2022-01-03 12:36] LABS: RBC/HPF 0-3 HPF (0-3); Squamous Epithelial 0-3 HPF (0-3); WBC/HPF 0-3 HPF (0-3)
[2022-01-03 12:39] LABS: Bacteria/HPF None Seen HPF (None Seen); Yeast-Budding None Seen HPF (None Seen)
[2022-01-03] MEDS ORDERED: NOREPINEPHRINE 8 MG/250 ML-D5W 250 ML ONE (13:36)
[2022-01-03] MEDS ORDERED: Cefepime 2 GM VIAL ONE (13:36)
[2022-01-03] MEDS ORDERED: Acetaminophen 325 MG TAB PO PRN (13:56)
[2022-01-03] MEDS ORDERED: NOREPINEPHRINE 8 MG/250 ML-D5W 250 ML IVPB SCH (14:00)
[2022-01-03] MEDS ORDERED: Hydrocortisone Sod Succ/PF 100 mg/2 ml Vial ONE (14:27)
[2022-01-03] MEDS ORDERED: VANCOMYCIN 2 GRAM/500 ML BAG 2 GM in Premix Bag 1 BAG IVPB SCH (14:30)
[2022-01-03] MEDS ORDERED: Hydrocortisone Sod Succ/PF 100 mg/2 ml Vial IVP SCH (14:30)
[2022-01-03 14:31] LABS: Lactic Acid 1.2 mmol/L (0.5-2.2)
[2022-01-03 14:56] LABS: CKMB 4.8 ng/mL (0-6.6)
[2022-01-03] MEDS: Sodium Chloride 0.9% 1,000 ML IV SCH ×2 (15:40→21:43)
[2022-01-03 16:19] VITALS: BMI 37.0
[2022-01-03] MEDS ORDERED: FLU VACC QS2022-23(65YR UP)/PF 240 MCG/0.7 ML SYRINGE IM ONE (16:30)
[2022-01-03 16:45] LABS: SARS-CoV-2 NAA Rapid Test DETECTED (NotDetected)
[2022-01-03 17:52] LABS: Actual Bicarbonate (HCO3v) 20 mEq/L (22-28); Base Excess -5.5 mEq/L (-2.0 to +3.0); Chloride (VBG) 105 mmol/L (98-106); Hemoglobin (Hb) 12.4 g/dL (12.6-17.4); Potassium (VBG) 3.89 mmol/L (3.70-5.30); Sodium 134.7 mmol/L (133-146); pH (venous) 7.31 (7.32-7.43)
[2022-01-03] MEDS ORDERED: Famotidine 20 MG TAB PO SCH (21:00)
[2022-01-03] MEDS ORDERED: Vancomycin HCl 1 GM in Sodium Chloride 0.9% 250 ML 300 ML IVPB SCH (21:00)
[2022-01-03] MEDS: Hydrocortisone Sod Succ/PF 100 mg/2 ml Vial IVP SCH (21:36)
[2022-01-04] MEDS: Cefepime 1 GM in Sodium Chloride 0.9% 100 ML IVPB SCH ×2 (02:01→13:33)
[2022-01-04 04:02] LABS: #Lymphocytes 0.6 thou/uL (1.20-3.40); #Monocytes 0.7 thou/uL (0.11-0.59); #Neutrophils 6.4 thou/uL (1.40-6.50); %Eosinophils 0.6 % (0.0-10.0); %Lymphocytes 8.2 % (21.0-51.0); %Monocytes 8.7 % (0.0-10.0); %Neutrophils 82.5 % (42.0-75.0); Mean Corpuscular HGB CONC 32.1 g/dL (32.0-36.0); Mean Corpuscular Hemoglobin 27.2 pg (27.0-31.0); Mean Corpuscular Volume 84.8 fl (78.0-98.0); Mean Platelet Volume 7.1 fL (7.4-10.4); Platelet Count 175 10x3/uL (130-400); RBC Distribution Width 18.8 % (11.5-14.5); Red Blood Cell (RBC) Count 3.69 mill/uL (4.70-6.10); White Blood Cell (WBC) Count 7.8 10x3/uL (4.8-10.8)
[2022-01-04 04:34] LABS: ALT (SGPT) 22 U/L (8-55); AST (SGOT) 17 U/L (5-34); Albumin 2.7 g/dL (3.4-4.8); Alkaline Phosphatase 109 U/L (40-110); Anion Gap 12 mmol/L (10-20); BUN (Urea Nitrogen) 30 mg/dL (8.4-25.7); Bilirubin, Total 0.9 mg/dL (0.2-1.2); Calc. Creatinine Clearance 68 mL/min (70-130); Calcium 7.9 mg/dL (7.8-10.44); Carbon Dioxide 21 mmol/L (23-31); Chloride 108 mmol/L (98-107); Estimated GFR 42; Globulin 1.8 g/dL (2.4-3.5); Glucose 112 mg/dL (80-115); Potassium 3.8 mmol/L (3.5-5.1); Protein, Total 4.5 g/dL (5.8-8.1); Sodium 137 mmol/L (136-145)
[2022-01-04] MEDS: Hydrocortisone Sod Succ/PF 100 mg/2 ml Vial IVP SCH ×3 (05:23→23:49)
[2022-01-04] MEDS: Sodium Chloride 0.9% 1,000 ML IV SCH ×2 (08:38→13:24)
[2022-01-04] MEDS ORDERED: Enoxaparin Sodium 30 MG/0.3 ML SYRINGE SC SCH (09:00)
[2022-01-04 15:30] LABS: Vancomycin, Random 9.4 ug/mL (See Comment)
[2022-01-04] MEDS: VANCOMYCIN 1.75 GM/500 ML BAG 1.75 GM in Premix Bag 1 BAG IVPB SCH (16:12)
[2022-01-04] MEDS: Gabapentin 300 MG CAP PO SCH (20:30)
[2022-01-04] MEDS: Atorvastatin Calcium 20 MG TAB PO SCH (20:30)
[2022-01-04] MEDS: Melatonin 3 MG TAB PO SCH (20:31)
[2022-01-05] MEDS: Cefepime 1 GM in Sodium Chloride 0.9% 100 ML IVPB SCH (02:43)
[2022-01-05] MEDS: Sodium Chloride 0.9% 1,000 ML IV SCH ×3 (02:44→17:25)
[2022-01-05] MEDS: Hydrocortisone Sod Succ/PF 100 mg/2 ml Vial IVP SCH ×2 (05:40→13:41)
[2022-01-05 06:14] LABS: #Lymphocytes 0.7 thou/uL (1.20-3.40); #Monocytes 0.4 thou/uL (0.11-0.59); #Neutrophils 3.9 thou/uL (1.40-6.50); %Eosinophils 0.5 % (0.0-10.0); %Lymphocytes 13.9 % (21.0-51.0); %Monocytes 8.4 % (0.0-10.0); %Neutrophils 77.2 % (42.0-75.0); Hemoglobin 8.8 g/dL (14.0-18.0); Mean Corpuscular HGB CONC 32.1 g/dL (32.0-36.0); Mean Corpuscular Volume 84.1 fl (78.0-98.0); Mean Platelet Volume 7.2 fL (7.4-10.4); Platelet Count 153 10x3/uL (130-400); RBC Distribution Width 18.7 % (11.5-14.5); Red Blood Cell (RBC) Count 3.27 mill/uL (4.70-6.10)
[2022-01-05] MEDS ORDERED: Bisacodyl 5 MG TAB PO PRN (06:20)
[2022-01-05 06:38] LABS: Anion Gap 10 mmol/L (10-20); BUN (Urea Nitrogen) 18 mg/dL (8.4-25.7); Calc. Creatinine Clearance 131 mL/min (70-130); Calcium 7.5 mg/dL (7.8-10.44); Carbon Dioxide 22 mmol/L (23-31); Chloride 111 mmol/L (98-107); Estimated GFR 92; Glucose 108 mg/dL (80-115); Sodium 139 mmol/L (136-145)
[2022-01-05] MEDS ORDERED: Ferrous Sulfate 325 MG TAB PO SCH (08:00)
[2022-01-05] MEDS: Enoxaparin Sodium 40 MG/0.4 ML SYRINGE SC SCH (11:02)
[2022-01-05] MEDS: Gabapentin 300 MG CAP PO SCH ×2 (11:03→21:00)
[2022-01-05] MEDS: Aspirin 81 mg Enteric Coated Tablet PO SCH (11:03)
[2022-01-05] MEDS: Polyethylene Glycol 3350 17 GM Packet PO SCH (11:03)
[2022-01-05] MEDS: Cefepime 2 GM in Sodium Chloride 0.9% 100 ML IVPB SCH (13:42)
[2022-01-05] MEDS ORDERED: Amitriptyline HCl 10 MG TAB PO PRN (16:58)
[2022-01-05] MEDS: VANCOMYCIN 1.75 GM/500 ML BAG 1.75 GM in Premix Bag 1 BAG IVPB SCH ×2 (17:23→19:52)
[2022-01-05] MEDS ORDERED: traMADol HCl 50 MG TAB PO SCH (20:15)
[2022-01-05] MEDS ORDERED: Hydrocortisone Sod Succ/PF 100 mg/2 ml Vial IVP SCH (21:00)
[2022-01-05] MEDS ORDERED: Lisinopril 5 MG TAB PO SCH (21:00)
[2022-01-05] MEDS: Senokot S 8.6-50 MG TAB PO SCH (21:01)
[2022-01-05] MEDS: Melatonin 3 MG TAB PO SCH (21:01)
[2022-01-05] MEDS: Atorvastatin Calcium 20 MG TAB PO SCH (21:01)
[2022-01-06] MEDS: Cefepime 2 GM in Sodium Chloride 0.9% 100 ML IVPB SCH ×2 (03:11→13:59)
[2022-01-06] MEDS: Sodium Chloride 0.9% 1,000 ML IV SCH (03:19)
[2022-01-06 07:41] LABS: Chloride 113 mmol/L (98-107); Potassium 4.1 mmol/L (3.5-5.1); Sodium 139 mmol/L (136-145)
[2022-01-06 08:03] LABS: Glucose 110 mg/dL (80-115)
[2022-01-06 08:05] LABS: Anion Gap 10 mmol/L (10-20); Carbon Dioxide 19 mmol/L (23-31)
[2022-01-06 08:06] LABS: Calc. Creatinine Clearance 145 mL/min (70-130); Estimated GFR 97
[2022-01-06 08:07] LABS: BUN (Urea Nitrogen) 14 mg/dL (8.4-25.7)
[2022-01-06] MEDS: Gabapentin 300 MG CAP PO SCH (08:30)
[2022-01-06] MEDS: Senokot S 8.6-50 MG TAB PO SCH (08:30)
[2022-01-06] MEDS: Enoxaparin Sodium 40 MG/0.4 ML SYRINGE SC SCH (08:32)
[2022-01-06] MEDS: Polyethylene Glycol 3350 17 GM Packet PO SCH (08:32)
[2022-01-06] MEDS: Aspirin 81 mg Enteric Coated Tablet PO SCH (08:33)
[2022-01-06] MEDS ORDERED: predniSONE 20 MG TAB PO SCH (09:00)
[2022-01-06 09:11] LABS: Hemoglobin 9.1 g/dL (14.0-18.0); Mean Corpuscular HGB CONC 31.8 g/dL (32.0-36.0); Mean Corpuscular Volume 84.9 fl (78.0-98.0); Mean Platelet Volume 7.3 fL (7.4-10.4); Platelet Count 149 10x3/uL (130-400); RBC Distribution Width 19.1 % (11.5-14.5); Red Blood Cell (RBC) Count 3.37 mill/uL (4.70-6.10); White Blood Cell (WBC) Count 4.3 10x3/uL (4.8-10.8)
[2022-01-06 09:32] LABS: Band 3 % (5-11); Hypochromia SLIGHT = 6-15 cells (100X) (0-5/hpf); Lymphocytes 12 % (21-51); MDiff Complete? YES; Metamyelocyte 1 % (0-0); Monocytes 2 % (0-10); Neutrophil 82 % (42-75)
[2022-01-06 16:03] VITALS: BP 168/98; TEMP 97.9
[2022-01-06] MEDS ORDERED: VANCOMYCIN 1.75 GM/500 ML BAG 1.75 GM in Premix Bag 1 BAG IVPB SCH (20:00)
== END 2022-01-06 17:50 | disposition home health service (06) | DRG 871 ==
LOC: ERS 10:40 → CCU 13:56 → NEURO 01-04 12:00
PROVIDERS: ADMIT Internal Medicine; ATTEND Family Medicine
PROC: 3E03329 Introduction of Other Anti-infective into Peripheral Vein, Percutaneous Approach (ICD-10-PCS; principal; 2022-01-03)
PROC: 3E033XZ Introduction of Vasopressor into Peripheral Vein, Percutaneous Approach (ICD-10-PCS; 2022-01-03)
DX: A41.9 Sepsis, unspecified organism (principal); G93.41 Metabolic encephalopathy; R65.21 Severe sepsis with septic shock; R57.8 Other shock; U07.1 COVID-19; R57.1 Hypovolemic shock; N17.9 Acute kidney failure, unspecified; E27.40 Unspecified adrenocortical insufficiency; I24.8 Other forms of acute ischemic heart disease; Z20.822 Contact with and (suspected) exposure to COVID-19; N18.30 Chronic kidney disease, stage 3 unspecified; D63.1 Anemia in chronic kidney disease; G89.29 Other chronic pain; G47.33 Obstructive sleep apnea (adult) (pediatric); I25.10 Atherosclerotic heart disease of native coronary artery without angina pectoris; E80.6 Other disorders of bilirubin metabolism; I12.9 Hypertensive chronic kidney disease with stage 1 through stage 4 chronic kidney disease, or unspecified chronic kidney disease; F32.A Depression, unspecified; E66.01 Morbid (severe) obesity due to excess calories; E78.2 Mixed hyperlipidemia; E86.0 Dehydration; Z98.1 Arthrodesis status; Z88.8 Allergy status to other drugs, medicaments and biological substances; Z79.82 Long term (current) use of aspirin; Z79.899 Other long term (current) drug therapy; Z79.52 Long term (current) use of systemic steroids; Z95.5 Presence of coronary angioplasty implant and graft; Z68.37 Body mass index [BMI] 37.0-37.9, adult
CPT/HCPCS: 36415; 36416; 36556; 51701; 70450; 71045; 76770; 80048; 80053; 80202; 81003; 81015; 82533; 82553; 82805; 83605; 84145; 84484; 85025; 87040; 87086; 93005; 94760; 96361; 96365; 96368; 96374; 96375; J0692; J1650; J1720; J3010; J3370; J3490; J7050; J7512; U0002

== ENCOUNTER 2022-05-27 05:44 | Day surgery (SDC) | payer MEDICARE ==
[2022-04-27 11:08] VITALS: BMI 35.9
[2022-05-27] MEDS ORDERED: Hydrocortisone Sod Succ/PF 250 mg/2 ml Vial ONE (07:53)
[2022-05-27] MEDS ORDERED: PROPOFOL 200 MG/20 ML VIAL ONE (08:00)
[2022-05-27] MEDS ORDERED: Lidocaine 1% PF 5 ML VIAL ONE (08:00)
== END 2022-05-27 09:45 | disposition home or self-care (01) ==
LOC: SDC 05:44
PROVIDERS: ATTEND Internal Medicine Gastroenterology
PROC: 0D717ZZ Dilation of Upper Esophagus, Via Natural or Artificial Opening (ICD-10-PCS; principal; 2022-05-27)
PROC: 0DB38ZX Excision of Lower Esophagus, Via Natural or Artificial Opening Endoscopic, Diagnostic (ICD-10-PCS; 2022-05-27)
PROC: 0DB78ZX Excision of Stomach, Pylorus, Via Natural or Artificial Opening Endoscopic, Diagnostic (ICD-10-PCS; 2022-05-27)
PROC: 0DB18ZX Excision of Upper Esophagus, Via Natural or Artificial Opening Endoscopic, Diagnostic (ICD-10-PCS; 2022-05-27)
PROC: 0DBH8ZX Excision of Cecum, Via Natural or Artificial Opening Endoscopic, Diagnostic (ICD-10-PCS; 2022-05-27)
PROC: 0DBL8ZX Excision of Transverse Colon, Via Natural or Artificial Opening Endoscopic, Diagnostic (ICD-10-PCS; 2022-05-27)
PROC: 0DBN8ZX Excision of Sigmoid Colon, Via Natural or Artificial Opening Endoscopic, Diagnostic (ICD-10-PCS; 2022-05-27)
DX: Z12.11 Encounter for screening for malignant neoplasm of colon (principal); D12.3 Benign neoplasm of transverse colon; D12.5 Benign neoplasm of sigmoid colon; K31.9 Disease of stomach and duodenum, unspecified; K22.10 Ulcer of esophagus without bleeding; B37.81 Candidal esophagitis; K22.2 Esophageal obstruction; K64.8 Other hemorrhoids; Z86.010 Personal history of colon polyps; Z79.2 Long term (current) use of antibiotics; Z79.52 Long term (current) use of systemic steroids; Z79.82 Long term (current) use of aspirin; Z79.899 Other long term (current) drug therapy; Z88.8 Allergy status to other drugs, medicaments and biological substances; Z95.5 Presence of coronary angioplasty implant and graft; Z98.2 Presence of cerebrospinal fluid drainage device
CPT/HCPCS: 88305; J1720; J2704

== ENCOUNTER 2022-06-03 12:19 | Inpatient (IN) | payer MEDICARE ==
[~2022-06-03 12:19] MED LIST changes: -Iopamidol-370 76% 500 ML 1 ML ONE; +Iopamidol-370 76% 500 ML MDV (1 ML CHARGE) ONE
[2022-06-03] MEDS ORDERED: Cefepime 2 GM VIAL ONE (13:10)
[2022-06-03] MEDS ORDERED: VANCOMYCIN 2 GRAM/500 ML BAG 2 GM in Premix Bag 1 BAG IVPB SCH (13:30)
[2022-06-03 14:03] LABS: Actual Bicarbonate (HCO3v) 20 mEq/L (22-28); Base Excess -1.1 mEq/L (-2.0 to +3.0); Calcium, Ionized (venous) 0.88 mmol/L (1.16-1.32); Chloride (VBG) 102 mmol/L (98-106); Hemoglobin (Hb) 9.7 g/dL (12.6-17.4); Potassium (VBG) 3.71 mmol/L (3.70-5.30); pH (venous) 7.58 (7.32-7.43)
[2022-06-03 14:29] LABS: INR-International Normal Ratio 1.1; PTT 24.3 sec (22.9-36.1); Prothrombin Time 14.2 sec (12.0-14.7)
[2022-06-03 14:43] LABS: ALT (SGPT) 32 U/L (8-55); AST (SGOT) 16 U/L (5-34); Albumin 3.3 g/dL (3.4-4.8); Alkaline Phosphatase 142 U/L (40-110); Anion Gap 15 mmol/L (10-20); BUN (Urea Nitrogen) 15 mg/dL (8.4-25.7); Bilirubin, Total 1.1 mg/dL (0.2-1.2); Calc. Creatinine Clearance 0 mL/min (70-130); Carbon Dioxide 25 mmol/L (23-31); Chloride 104 mmol/L (98-107); Estimated GFR 68; Globulin 2.3 g/dL (2.4-3.5); Glucose 115 mg/dL (80-115); Potassium 3.8 mmol/L (3.5-5.1); Protein, Total 5.6 g/dL (5.8-8.1); Sodium 140 mmol/L (136-145)
[2022-06-03 15:14] LABS: #Eosinphils 0.1 thou/uL (0.0-0.7); #Monocytes 0.8 thou/uL (0.11-0.59); #Neutrophils 11.2 thou/uL (1.40-6.50); %Eosinophils 0.5 % (0.0-10.0); %Lymphocytes 7.3 % (21.0-51.0); %Monocytes 6.3 % (0.0-10.0); %Neutrophils 85.9 % (42.0-75.0); Hemoglobin 8.5 g/dL (14.0-18.0); Mean Corpuscular HGB CONC 29.1 g/dL (32.0-36.0); Mean Corpuscular Hemoglobin 22.3 pg (27.0-31.0); Mean Corpuscular Volume 76.4 fl (78.0-98.0); Platelet Count 256 10x3/uL (130-400); RBC Distribution Width 19.9 % (11.5-14.5); Red Blood Cell (RBC) Count 3.82 mill/uL (4.70-6.10)
[2022-06-03] MEDS ORDERED: Hydrocortisone Sod Succ/PF 100 mg/2 ml Vial ONE ×2 (15:18→15:20)
[2022-06-03 15:49] LABS: Anisocytosis SLIGHT = 6-15 cells (100X) (0-5/hpf); Hypochromia SLIGHT = 6-15 cells (100X) (0-5/hpf); MDiff Complete? YES; Microcytosis SLIGHT = 6-15 cells (100X) (0-5/hpf); Platelet Morphology Comment Appears Adequate; Polychromasia SLIGHT = 2-3 cells (100X) (0-2/hpf)
[2022-06-03] MEDS ORDERED: Ondansetron ODT 4 MG TAB PO PRN (17:11)
[2022-06-03] MEDS ORDERED: Calcium Carbonate 500 MG ChewTAB PO PRN (17:11)
[2022-06-03] MEDS ORDERED: Ondansetron PF 4 MG/2 ML Vial IVP PRN (17:11)
[2022-06-03] MEDS ORDERED: Acetaminophen 325 MG TAB PO PRN (17:11)
[2022-06-03] MEDS ORDERED: Senokot S 8.6-50 MG TAB PO PRN (17:11)
[2022-06-03] MEDS ORDERED: Amitriptyline HCl 10 MG TAB PO PRN (17:14)
[2022-06-03] MEDS ORDERED: Communication Order-Pharmacy FS ONE (17:16)
[2022-06-03 18:13] LABS: Lactic Acid 2.2 mmol/L (0.5-2.2)
[2022-06-03 18:21] LABS: Bilirubin Negative (Negative); Blood, Urine Negative (Negative); Clarity Clear (Clear); Glucose, Urine (Dipstick) Normal (Negative); Ketone, Urine Negative (Negative); Leukocyte Negative Leu/uL (Negative); Nitrite Negative (Negative); Protein, Urine (Dipstick) 20 mg/dL (Neg-Trace); Urobilinogen Normal mg/dL (Less than 2)
[2022-06-03 18:27] LABS: Specific Gravity, Urine 1.046 (1.002-1.036)
[2022-06-03 23:20] VITALS: BMI 39.4
[2022-06-04] MEDS: Sodium Chloride 0.9% 1,000 ML IV SCH ×2 (00:59→05:28)
[2022-06-04] MEDS: Atorvastatin Calcium 40 MG TAB PO SCH ×2 (01:00→20:17)
[2022-06-04] MEDS ORDERED: Cefepime 1 GM in Sodium Chloride 0.9% 100 ML IVPB SCH (01:00)
[2022-06-04] MEDS: predniSONE 5 MG TAB PO SCH ×2 (01:00→20:19)
[2022-06-04] MEDS: VANCOMYCIN 1.25 GM/250 ML BAG 1.25 GM in Premix Bag 1 BAG IVPB SCH ×2 (03:07→15:55)
[2022-06-04] MEDS: traMADol HCl 50 MG TAB PO PRN ×2 (03:13→21:05)
[2022-06-04 04:50] LABS: #Eosinphils 0.1 thou/uL (0.0-0.7); #Monocytes 0.6 thou/uL (0.11-0.59); %Eosinophils 0.9 % (0.0-10.0); %Lymphocytes 13.2 % (21.0-51.0); %Monocytes 7.1 % (0.0-10.0); %Neutrophils 78.7 % (42.0-75.0); Hemoglobin 7.5 g/dL (14.0-18.0); Mean Corpuscular HGB CONC 30.4 g/dL (32.0-36.0); Mean Corpuscular Hemoglobin 23.2 pg (27.0-31.0); Mean Corpuscular Volume 76.1 fl (78.0-98.0); Mean Platelet Volume 7.6 fL (7.4-10.4); Platelet Count 232 10x3/uL (130-400); RBC Distribution Width 19.5 % (11.5-14.5); Red Blood Cell (RBC) Count 3.23 mill/uL (4.70-6.10); White Blood Cell (WBC) Count 7.7 10x3/uL (4.8-10.8)
[2022-06-04 05:15] LABS: ALT (SGPT) 24 U/L (8-55); AST (SGOT) 12 U/L (5-34); Albumin 2.7 g/dL (3.4-4.8); Alkaline Phosphatase 114 U/L (40-110); Anion Gap 12 mmol/L (10-20); BUN (Urea Nitrogen) 17 mg/dL (8.4-25.7); Bilirubin, Total 0.7 mg/dL (0.2-1.2); Calc. Creatinine Clearance 137 mL/min (70-130); Calcium 8.1 mg/dL (7.8-10.44); Carbon Dioxide 23 mmol/L (23-31); Chloride 110 mmol/L (98-107); Estimated GFR 91; Globulin 2.1 g/dL (2.4-3.5); Glucose 102 mg/dL (80-115); Potassium 3.7 mmol/L (3.5-5.1); Protein, Total 4.8 g/dL (5.8-8.1); Sodium 141 mmol/L (136-145)
[2022-06-04] MEDS ORDERED: HYDROcodone/Acetaminophen 5/325 mg Tablet PO PRN (07:47)
[2022-06-04] MEDS ORDERED: Furosemide 40 MG/4 ML VIAL SLOW IVP SCH (08:00)
[2022-06-04] MEDS ORDERED: Aspirin 81 mg Enteric Coated Tablet PO SCH (09:00)
[2022-06-04] MEDS: Enoxaparin 120 MG/0.8 ML SYRINGE SC SCH ×2 (09:58→20:20)
[2022-06-04] MEDS: Gabapentin 300 MG CAP PO SCH ×2 (09:59→20:19)
[2022-06-04] MEDS: Fluconazole 100 MG TAB PO SCH (09:59)
[2022-06-04] MEDS: Lidocaine 4% Patch TD SCH (10:00)
[2022-06-04] MEDS: predniSONE 20 MG TAB PO SCH (10:00)
[2022-06-04] MEDS: Cefepime 2 GM in Sodium Chloride 0.9% 100 ML IVPB SCH (14:54)
[2022-06-04] MEDS: Amitriptyline HCl 10 MG TAB PO SCH (20:16)
[2022-06-04] MEDS: Transdermal Patch Removal TOP SCH (21:05)
[2022-06-05] MEDS: Cefepime 2 GM in Sodium Chloride 0.9% 100 ML IVPB SCH ×2 (02:01→15:16)
[2022-06-05 02:31] LABS: Vancomycin, Trough 19.5 ug/mL
[2022-06-05 04:17] LABS: #Eosinphils 0.1 thou/uL (0.0-0.7); #Lymphocytes 0.8 thou/uL (1.20-3.40); #Monocytes 0.4 thou/uL (0.11-0.59); #Neutrophils 5.6 thou/uL (1.40-6.50); %Basophils 0.2 % (0.0-1.0); %Eosinophils 1.7 % (0.0-10.0); %Lymphocytes 11.2 % (21.0-51.0); %Monocytes 5.5 % (0.0-10.0); %Neutrophils 81.4 % (42.0-75.0); Hemoglobin 6.9 g/dL (14.0-18.0); Mean Corpuscular HGB CONC 30.2 g/dL (32.0-36.0); Mean Corpuscular Hemoglobin 22.8 pg (27.0-31.0); Mean Corpuscular Volume 75.5 fl (78.0-98.0); Mean Platelet Volume 8.2 fL (7.4-10.4); Platelet Count 199 10x3/uL (130-400); RBC Distribution Width 19.5 % (11.5-14.5); Red Blood Cell (RBC) Count 3.01 mill/uL (4.70-6.10); White Blood Cell (WBC) Count 6.9 10x3/uL (4.8-10.8)
[2022-06-05 04:43] LABS: Anion Gap 13 mmol/L (10-20); BUN (Urea Nitrogen) 15 mg/dL (8.4-25.7); CRP (Inflammatory) 8.46 mg/dL (= or < 0.5); Calc. Creatinine Clearance 147 mL/min (70-130); Calcium 8.2 mg/dL (7.8-10.44); Carbon Dioxide 21 mmol/L (23-31); Chloride 109 mmol/L (98-107); Estimated GFR 95; Glucose 118 mg/dL (80-115); Iron 22 ug/dL (65-175); Iron Binding Capacity, Total 223 mcg/dL (261-462); Potassium 4.1 mmol/L (3.5-5.1); Sodium 139 mmol/L (136-145)
[2022-06-05] MEDS: Vancomycin 1 GM in Premix Bag 1 BAG IVPB SCH ×2 (05:32→16:58)
[2022-06-05] MEDS ORDERED: Polyethylene Glycol 3350 17 GM Packet PO PRN (08:01)
[2022-06-05] MEDS: predniSONE 20 MG TAB PO SCH (08:52)
[2022-06-05] MEDS: Lidocaine 4% Patch TD SCH (08:52)
[2022-06-05] MEDS: Fluconazole 100 MG TAB PO SCH (08:52)
[2022-06-05] MEDS: Gabapentin 300 MG CAP PO SCH ×2 (08:52→20:31)
[2022-06-05] MEDS ORDERED: Iopamidol 370 76% 100 ML VIAL ONE (11:06)
[2022-06-05] MEDS: traMADol HCl 50 MG TAB PO PRN (20:30)
[2022-06-05] MEDS: predniSONE 5 MG TAB PO SCH (20:30)
[2022-06-05] MEDS: Amitriptyline HCl 10 MG TAB PO SCH (20:31)
[2022-06-05] MEDS: Atorvastatin Calcium 40 MG TAB PO SCH (20:31)
[2022-06-05] MEDS: Transdermal Patch Removal TOP SCH (20:32)
[2022-06-06] MEDS: Vancomycin 1 GM in Premix Bag 1 BAG IVPB SCH ×2 (02:21→16:26)
[2022-06-06 05:30] LABS: Anion Gap 11 mmol/L (10-20); BUN (Urea Nitrogen) 14 mg/dL (8.4-25.7); Calc. Creatinine Clearance 152 mL/min (70-130); Calcium 8.5 mg/dL (7.8-10.44); Carbon Dioxide 23 mmol/L (23-31); Chloride 106 mmol/L (98-107); Estimated GFR 95; Glucose 152 mg/dL (80-115); Potassium 4.4 mmol/L (3.5-5.1); Sodium 136 mmol/L (136-145)
[2022-06-06 05:34] LABS: #Eosinphils 0.1 thou/uL (0.0-0.7); #Lymphocytes 0.8 thou/uL (1.20-3.40); #Monocytes 0.4 thou/uL (0.11-0.59); #Neutrophils 4.5 thou/uL (1.40-6.50); %Basophils 0.3 % (0.0-1.0); %Eosinophils 1.3 % (0.0-10.0); %Lymphocytes 13.1 % (21.0-51.0); %Monocytes 6.3 % (0.0-10.0); %Neutrophils 78.9 % (42.0-75.0); Hemoglobin 8.2 g/dL (14.0-18.0); Hypochromia SLIGHT = 6-15 cells (100X) (0-5/hpf); MDiff Complete? YES; Mean Corpuscular HGB CONC 31.1 g/dL (32.0-36.0); Mean Corpuscular Volume 77.3 fl (78.0-98.0); Mean Platelet Volume 8.2 fL (7.4-10.4); Microcytosis SLIGHT = 6-15 cells (100X) (0-5/hpf); Platelet Count 214 10x3/uL (130-400); Platelet Morphology Comment Appears Adequate; RBC Distribution Width 19.8 % (11.5-14.5); Red Blood Cell (RBC) Count 3.39 mill/uL (4.70-6.10); White Blood Cell (WBC) Count 5.8 10x3/uL (4.8-10.8)
[2022-06-06] MEDS ORDERED: Lidocaine 1% (PF) 30 ML VIAL ONE (07:08)
[2022-06-06] MEDS: predniSONE 20 MG TAB PO SCH (08:43)
[2022-06-06] MEDS: Gabapentin 300 MG CAP PO SCH ×2 (08:43→20:33)
[2022-06-06] MEDS: Fluconazole 100 MG TAB PO SCH (08:44)
[2022-06-06] MEDS: Lidocaine 4% Patch TD SCH (08:44)
[2022-06-06] MEDS ORDERED: Furosemide 40 MG/4 ML VIAL SLOW IVP SCH (09:45)
[2022-06-06] MEDS ORDERED: Iopamidol 370 76% 100 ML VIAL ONE (10:23)
[2022-06-06] MEDS ORDERED: Vancomycin 1 GM in Premix Bag 1 BAG IVPB SCH (15:15)
[2022-06-06] MEDS: traMADol HCl 50 MG TAB PO PRN (20:33)
[2022-06-06] MEDS: predniSONE 5 MG TAB PO SCH (20:33)
[2022-06-06] MEDS: Atorvastatin Calcium 40 MG TAB PO SCH (20:33)
[2022-06-06] MEDS: Amitriptyline HCl 10 MG TAB PO SCH (20:33)
[2022-06-06] MEDS: Transdermal Patch Removal TOP SCH (21:00)
[2022-06-07 03:51] LABS: #Eosinphils 0.1 thou/uL (0.0-0.7); #Lymphocytes 0.7 thou/uL (1.20-3.40); #Monocytes 0.4 thou/uL (0.11-0.59); #Neutrophils 4.3 thou/uL (1.40-6.50); %Basophils 0.2 % (0.0-1.0); %Eosinophils 2.4 % (0.0-10.0); %Lymphocytes 12.2 % (21.0-51.0); %Monocytes 7.6 % (0.0-10.0); %Neutrophils 77.7 % (42.0-75.0); Hemoglobin 8.8 g/dL (14.0-18.0); Mean Corpuscular Hemoglobin 25.5 pg (27.0-31.0); Mean Corpuscular Volume 77.3 fl (78.0-98.0); Platelet Count 225 10x3/uL (130-400); RBC Distribution Width 20.2 % (11.5-14.5); Red Blood Cell (RBC) Count 3.45 mill/uL (4.70-6.10); White Blood Cell (WBC) Count 5.5 10x3/uL (4.8-10.8)
[2022-06-07 03:53] LABS: Vancomycin, Random 22.4 ug/mL (See Comment)
[2022-06-07 03:54] LABS: Anion Gap 12 mmol/L (10-20); BUN (Urea Nitrogen) 17 mg/dL (8.4-25.7); Calc. Creatinine Clearance 147 mL/min (70-130); Calcium 8.4 mg/dL (7.8-10.44); Carbon Dioxide 26 mmol/L (23-31); Chloride 105 mmol/L (98-107); Estimated GFR 94; Glucose 164 mg/dL (80-115); Potassium 4.3 mmol/L (3.5-5.1); Sodium 139 mmol/L (136-145)
[2022-06-07] MEDS: Fluconazole 100 MG TAB PO SCH (07:50)
[2022-06-07] MEDS: Gabapentin 300 MG CAP PO SCH (07:50)
[2022-06-07] MEDS: Lidocaine 4% Patch TD SCH (07:50)
[2022-06-07] MEDS: predniSONE 20 MG TAB PO SCH (07:50)
[2022-06-07] MEDS ORDERED: VANCOMYCIN 1.75 GM/500 ML BAG 1.75 GM in Premix Bag 1 BAG IVPB SCH (09:00)
[2022-06-07 11:12] VITALS: BP 135/81; TEMP 97.4
== END 2022-06-07 13:47 | disposition home health service (06) | DRG 299 ==
LOC: SUATTDRO 12:19 → ERS 12:19 → 2NO 16:34
PROVIDERS: ADMIT Internal Medicine; ATTEND Internal Medicine
PROC: 3E03329 Introduction of Other Anti-infective into Peripheral Vein, Percutaneous Approach (ICD-10-PCS; 2022-06-03)
PROC: 06H03DZ Insertion of Intraluminal Device into Inferior Vena Cava, Percutaneous Approach (ICD-10-PCS; principal; 2022-06-05)
PROC: B5191ZZ Fluoroscopy of Inferior Vena Cava using Low Osmolar Contrast (ICD-10-PCS; 2022-06-05)
PROC: 30233N1 Transfusion of Nonautologous Red Blood Cells into Peripheral Vein, Percutaneous Approach (ICD-10-PCS; 2022-06-05)
DX: I82.412 Acute embolism and thrombosis of left femoral vein (principal); A41.9 Sepsis, unspecified organism; E87.29 Other acidosis; L03.116 Cellulitis of left lower limb; Z68.41 Body mass index [BMI] 40.0-44.9, adult; R19.5 Other fecal abnormalities; E88.09 Other disorders of plasma-protein metabolism, not elsewhere classified; E61.1 Iron deficiency; M54.9 Dorsalgia, unspecified; B37.9 Candidiasis, unspecified; D63.8 Anemia in other chronic diseases classified elsewhere; I10 Essential (primary) hypertension; G89.29 Other chronic pain; E66.01 Morbid (severe) obesity due to excess calories; Z88.8 Allergy status to other drugs, medicaments and biological substances; Z99.3 Dependence on wheelchair; Z98.890 Other specified postprocedural states; Z79.899 Other long term (current) drug therapy; Z79.82 Long term (current) use of aspirin; Z79.51 Long term (current) use of inhaled steroids
CPT/HCPCS: 36415; 36416; 36430; 37191; 71275; 74177; 80048; 80053; 80202; 81003; 82274; 82728; 82805; 83540; 83550; 83605; 83880; 85025; 85046; 85610; 85730; 86140; 86850; 86900; 86901; 87040; 87086; 87149; 93306; 94760; 96365; 96366; 96372; 96375; 97139; C1769; C1880; C1894; J0692; J1650; J1720; J1940; J2001; J3370; J3370-JW; J3490; J7050; J7512; P9016; Q9967